=== PATIENT | female | born 1945 | race Caucasian/White ===

== ENCOUNTER 2017-03-10 10:46 | Emergency (ER) | payer MEDICARE ==
[~2017-03-10] VITALS: Ht 160 cm; Wt 77.0 kg
[~2017-03-10 10:46] MED LIST: ANTIVERT OR; BEE POLLEN500 M1 PO; CALCIUM 600/VI600 MG PO; DIOVAN HCT160 MG/25 PO; DIOVAN160 MG PO; FISH OIL1000 MG PO; MECLIZINE25 MG PO; MEDDOSEPAK OR; PREDNISONE10 MG PO; PROTONIX40 MG PO; PROVENTIL IN; SPIRIVA RE2.5 MCG/AC IN; SYMBICORT1 AE1 IN; SYNTHROID100 MCG PO; SYNTHROID112 MCG PO; TOPROL XL PO; TYLENOL 500MG TAB PO; VALIUM2 MG PO; ZITHROMAX250 MG PO; ZOFRAN ODT4 MG PO
[2017-03-10 12:09] LABS: URINE BILIRUBIN - DIPSTICK NEGATIVE (NEGATIVE); URINE BLOOD DIPSTICK NEGATIVE (NEGATIVE); URINE COLOR YELLOW; URINE GLUCOSE - DIPSTICK NEGATIVE (NEGATIVE); URINE KETONE TRACE mg/dL (NEGATIVE); URINE LEUK ESTERASE TRACE (NEGATIVE); URINE NITRITE - DIPSTICK NEGATIVE (Negative); URINE PH 5.5 (4.5-8.0); URINE PROTEIN - DIPSTICK NEGATIVE (NEG-TRACE); URINE UROBILINOGEN - DIPSTICK 0.2 E.U./dL (0.2)
[2017-03-10 12:13] LABS: HEMATOCRIT 42.6 % (37.0-47.0); HEMOGLOBIN 14.2 g/dl (12.0-16.0); IMMATURE GRANULOCYTES 0.5 % (0.0-1.0); MEAN CELL VOLUME 86.4 fL CALC (80.0-100.0); MEAN CORPUSCULAR HGB 28.8 pG CALC (26.0-32.0); MEAN CORPUSCULAR HGB CONC 33.3 g/L CALC (32.0-36.0); NEUT# 10.3 thou/uL (2.00-7.15); RED BLOOD COUNT 4.93 mill/uL (4.20-5.60); RED CELL DISTRI WIDTH 14.2 % (11.5-15.5)
[2017-03-10 12:18] LABS: URINE CLARITY CLOUDY
[2017-03-10 12:22] LABS: ALBUMIN 4.3 g/dL (3.2-5.0); ALKALINE PHOSPHATASE 109 u/l (38-126); ANION GAP 14 (6-22 (CALC)); BILIRUBIN, TOTAL 0.7 mg/dL (0.0-1.4); BUN 12 mg/dL (8-23); BUN/CREATININE RATIO 18 (12-20 (CALC)); CALCIUM 9.2 mg/dL (8.4-10.2); CARBON DIOXIDE 29 mmol/l (22-30); CHLORIDE 101 mmol/l (95-108); CREATININE 0.7 mg/dL (0.5-1.0); GFR > 60 ML/MIN (>=60 (CALC)); GFR FOR AFR.AMER. > 60 ML/MIN (>=60 (CALC)); GLUCOSE 105 mg/dL (82-115); LIPASE 72 u/l (23-300); POTASSIUM 3.7 mmol/l (3.5-5.1); SGOT/AST 17 u/l (9-36); SGPT/ALT 30 u/l (11-66); SODIUM 140 mmol/l (137-146); TOTAL PROTEIN 7.3 g/dL (6.3-8.2)
[2017-03-10] MEDS ORDERED: ZOFRAN4 M1 PO (12:38)
[2017-03-10 13:34] VITALS: BP 151/69
== END 2017-03-10 13:20 | disposition home or self-care (01) ==
LOC: ED 10:46
PROVIDERS: Family Medicine
DX: K52.9 Noninfective gastroenteritis and colitis, unspecified (principal); I10 Essential (primary) hypertension; I25.10 Atherosclerotic heart disease of native coronary artery without angina pectoris; J45.909 Unspecified asthma, uncomplicated; E03.9 Hypothyroidism, unspecified

== ENCOUNTER 2017-07-29 22:22 | Observation (INO) | payer MEDICARE ==
[~2017-07-29] VITALS: Ht 157.5 cm; Wt 80.0 kg
[~2017-07-29 22:22] MED LIST changes: +ZOFRAN4 M1 PO
[2017-07-30 00:22] LABS: HEMATOCRIT 39.6 % (37.0-47.0); HEMOGLOBIN 12.8 g/dl (12.0-16.0); IMMATURE GRANULOCYTES 0.2 % (0.0-1.0); MEAN CORPUSCULAR HGB 28.4 pG CALC (26.0-32.0); MEAN CORPUSCULAR HGB CONC 32.3 g/L CALC (32.0-36.0); NEUT# 5.41 thou/uL (2.00-7.15); RED BLOOD COUNT 4.5 mill/uL (4.20-5.60); RED CELL DISTRI WIDTH 14.7 % (11.5-15.5)
[2017-07-30 00:43] LABS: INTERNATIONAL NORMALIZED RATIO 0.9 RATIO (0.7-1.3); PROTHROMBIN TIME 9.5 SECONDS (9.0-12.5)
[2017-07-30 00:58] LABS: ALBUMIN 3.9 g/dL (3.2-5.0); ALKALINE PHOSPHATASE 143 u/l (38-126); ANION GAP 15 (6-22 (CALC)); BILIRUBIN, TOTAL 0.2 mg/dL (0.0-1.4); BUN 15 mg/dL (8-23); BUN/CREATININE RATIO 20 (12-20 (CALC)); CARBON DIOXIDE 25 mmol/l (22-30); CHLORIDE 108 mmol/l (95-108); CREATININE 0.8 mg/dL (0.5-1.0); GFR > 60 ML/MIN (>=60 (CALC)); GFR FOR AFR.AMER. > 60 ML/MIN (>=60 (CALC)); POTASSIUM 3.6 mmol/l (3.5-5.1); SGOT/AST 19 u/l (9-36); SGPT/ALT 23 u/l (11-66); SODIUM 144 mmol/l (137-146); TOTAL PROTEIN 6.7 g/dL (6.3-8.2)
[2017-07-30 01:10] LABS: MYOGLOBIN 21 ng/mL (0 - 62)
[2017-07-30 03:10] VITALS: BP 132/72
[2017-07-30 04:29] LABS: URINE BILIRUBIN - DIPSTICK NEGATIVE (NEGATIVE); URINE BLOOD DIPSTICK NEGATIVE (NEGATIVE); URINE COLOR YELLOW; URINE GLUCOSE - DIPSTICK NEGATIVE (NEGATIVE); URINE KETONE NEGATIVE (NEGATIVE); URINE NITRITE - DIPSTICK NEGATIVE (Negative); URINE PH 5.5 (4.5-8.0); URINE PROTEIN - DIPSTICK NEGATIVE (NEG-TRACE); URINE SPECIFIC GRAVITY 1.025; URINE UROBILINOGEN - DIPSTICK 0.2 E.U./dL (0.2)
[2017-07-30 04:31] LABS: URINE CLARITY CLEAR; URINE LEUK ESTERASE SMALL (NEGATIVE)
[2017-07-30 04:43] LABS: URINE SQUAMOUS EPITHELIAL CELL RARE EPI/hpf (0-FEW)
[2017-07-30 05:39] VITALS: BP 141/72
[2017-07-30 07:31] VITALS: BP 132/61
[2017-07-30 09:23] LABS: CHOLESTEROL HDL RATIO 3.5 (<4.4 (CALC))
[2017-07-30] MEDS ORDERED: ADLT ASA LOW81 MG PO (10:18)
[2017-07-30] MEDS ORDERED: LEVOTHYROXIN100 MC1 PO (10:18)
[2017-07-30] MEDS ORDERED: LIPITOR10 M1 PO (10:18)
[2017-07-30 11:00] LABS: INFLUENZA A NONE DETECTED (NONE DETECT); INFLUENZA B NONE DETECTED (NONE DETECT)
[2017-07-30] MEDS ORDERED: NITROSTAT0.4 MG SL (11:03)
[2017-07-30 11:18] VITALS: BP 172/75
[2017-07-30] MEDS ORDERED: DIOVAN HCT160 MG/25 PO (12:41)
== END 2017-07-30 13:10 | disposition home or self-care (01) ==
LOC: ED 22:22 → ED-I 07-30 00:47 → ED 07-30 02:21 → MS2 07-30 02:22
PROVIDERS: Emergency Medicine; Nurse Practitioner Family; ADMIT Internal Medicine; ATTEND Internal Medicine
DX: I20.9 Angina pectoris, unspecified (principal); I16.0 Hypertensive urgency; I10 Essential (primary) hypertension; E03.9 Hypothyroidism, unspecified; K57.30 Diverticulosis of large intestine without perforation or abscess without bleeding; J45.20 Mild intermittent asthma, uncomplicated; R42 Dizziness and giddiness; Z91.14 Patient's other noncompliance with medication regimen; R06.02 Shortness of breath

== ENCOUNTER 2018-01-30 12:32 | Emergency (ER) | payer MEDICARE ==
[~2018-01-30] VITALS: Ht 157.5 cm; Wt 80.0 kg
[~2018-01-30 12:32] MED LIST changes: +ADLT ASA LOW81 MG PO; +LEVOTHYROXIN100 MC1 PO; +LIPITOR10 M1 PO; +NITROSTAT0.4 MG SL
[2018-01-30] MEDS ORDERED: LEVOTHYROXIN75 MCG PO (12:57)
[2018-01-30 13:56] LABS: URINE BILIRUBIN - DIPSTICK NEGATIVE (NEGATIVE); URINE BLOOD DIPSTICK NEGATIVE (NEGATIVE); URINE COLOR YELLOW; URINE GLUCOSE - DIPSTICK NEGATIVE (NEGATIVE); URINE KETONE NEGATIVE (NEGATIVE); URINE LEUK ESTERASE TRACE (NEGATIVE); URINE NITRITE - DIPSTICK NEGATIVE (Negative); URINE PROTEIN - DIPSTICK NEGATIVE (NEG-TRACE); URINE SPECIFIC GRAVITY <=1.005; URINE UROBILINOGEN - DIPSTICK 0.2 E.U./dL (0.2)
[2018-01-30 13:58] LABS: URINE CLARITY CLEAR
[2018-01-30 15:02] LABS: HEMOGLOBIN 13.1 g/dl (12.0-16.0); IMMATURE GRANULOCYTES 0.3 % (0.0-5.0); MEAN CELL VOLUME 87.4 fL CALC (80.0-100.0); MEAN CORPUSCULAR HGB 27.9 pG CALC (26.0-32.0); NEUT# 5.75 thou/uL (2.00-7.15); RED BLOOD COUNT 4.69 mill/uL (4.20-5.60); RED CELL DISTRI WIDTH 14.9 % (11.5-15.5)
[2018-01-30 15:22] LABS: ALKALINE PHOSPHATASE 87 u/l (38-126); ANION GAP 14 (6-22 (CALC)); BILIRUBIN, TOTAL 0.4 mg/dL (0.0-1.4); BUN 10 mg/dL (8-23); BUN/CREATININE RATIO 13 (12-20 (CALC)); CARBON DIOXIDE 26 mmol/l (22-30); CHLORIDE 107 mmol/l (95-108); CREATININE 0.7 mg/dL (0.5-1.0); GFR > 60 ML/MIN (>=60 (CALC)); GFR FOR AFR.AMER. > 60 ML/MIN (>=60 (CALC)); POTASSIUM 3.5 mmol/l (3.5-5.1); SGOT/AST 22 u/l (9-36); SGPT/ALT 30 u/l (11-66); SODIUM 144 mmol/l (137-146); TOTAL PROTEIN 7.2 g/dL (6.3-8.2)
[2018-01-30 15:52] LABS: TSH, 3RD GENERATION 0.54 uIU/mL (0.47 - 4.68)
[2018-01-30] MEDS ORDERED: FLEXERIL PO (16:28)
[2018-01-30] MEDS ORDERED: PERCOGESI1 PO (16:28)
[2018-01-30 16:56] VITALS: BP 155/64
== END 2018-01-30 17:33 | disposition home or self-care (01) ==
LOC: ED 12:32
PROVIDERS: Emergency Medicine
PROC: 05HY33Z Insertion of Infusion Device into Upper Vein, Percutaneous Approach (ICD-10-PCS; principal; 2018-01-30)
DX: M79.605 Pain in left leg (principal); I10 Essential (primary) hypertension; I25.10 Atherosclerotic heart disease of native coronary artery without angina pectoris; J45.909 Unspecified asthma, uncomplicated; M19.90 Unspecified osteoarthritis, unspecified site; R07.9 Chest pain, unspecified; R00.2 Palpitations

== ENCOUNTER 2018-02-12 17:17 | Observation (INO) | payer MEDICARE ==
[~2018-02-12] VITALS: Ht 157.5 cm; Wt 77.3 kg
[~2018-02-12 17:17] MED LIST changes: +FLEXERIL PO; +LEVOTHYROXIN75 MCG PO; +PERCOGESI1 PO
[2018-02-12] MEDS ORDERED: HYDROCHLOROT25 MG PO (17:45)
[2018-02-12 18:10] LABS: HEMATOCRIT 42.6 % (37.0-47.0); HEMOGLOBIN 14.1 g/dl (12.0-16.0); IMMATURE GRANULOCYTES 0.1 % (0.0-5.0); MEAN CELL VOLUME 85.9 fL CALC (80.0-100.0); MEAN CORPUSCULAR HGB 28.4 pG CALC (26.0-32.0); MEAN CORPUSCULAR HGB CONC 33.1 g/L CALC (32.0-36.0); NEUT# 5.65 thou/uL (2.00-7.15); RED BLOOD COUNT 4.96 mill/uL (4.20-5.60); RED CELL DISTRI WIDTH 14.5 % (11.5-15.5)
[2018-02-12 18:24] LABS: ALBUMIN 4.2 g/dL (3.2-5.0); ALKALINE PHOSPHATASE 99 u/l (38-126); ANION GAP 16 (6-22 (CALC)); BILIRUBIN, TOTAL 0.4 mg/dL (0.0-1.4); BUN 16 mg/dL (8-23); BUN/CREATININE RATIO 22 (12-20 (CALC)); CARBON DIOXIDE 22 mmol/l (22-30); CHLORIDE 106 mmol/l (95-108); CREATININE 0.7 mg/dL (0.5-1.0); GFR > 60 ML/MIN (>=60 (CALC)); GFR FOR AFR.AMER. > 60 ML/MIN (>=60 (CALC)); LIPASE 100 u/l (23-300); POTASSIUM 3.8 mmol/l (3.5-5.1); SGOT/AST 19 u/l (9-36); SGPT/ALT 28 u/l (11-66); SODIUM 140 mmol/l (137-146); TOTAL PROTEIN 7.2 g/dL (6.3-8.2)
[2018-02-12 19:54] LABS: URINE BILIRUBIN - DIPSTICK NEGATIVE (NEGATIVE); URINE BLOOD DIPSTICK NEGATIVE (NEGATIVE); URINE COLOR YELLOW; URINE GLUCOSE - DIPSTICK NEGATIVE (NEGATIVE); URINE KETONE NEGATIVE (NEGATIVE); URINE LEUK ESTERASE TRACE (NEGATIVE); URINE NITRITE - DIPSTICK NEGATIVE (Negative); URINE PROTEIN - DIPSTICK NEGATIVE (NEG-TRACE); URINE SPECIFIC GRAVITY >=1.030; URINE UROBILINOGEN - DIPSTICK 0.2 E.U./dL (0.2)
[2018-02-12 19:57] LABS: URINE CLARITY CLEAR
[2018-02-12 20:50] VITALS: BP 170/75
[2018-02-13 00:05] VITALS: BP 147/71
[2018-02-13 04:47] VITALS: BP 131/66
[2018-02-13 08:18] VITALS: BP 189/78
[2018-02-13 11:00] VITALS: BP 156/81
== END 2018-02-13 16:25 | disposition home or self-care (01) ==
LOC: ED 17:17 → ED-I 20:10 → ED 20:35 → MS2 20:36
PROVIDERS: Family Medicine; ADMIT Internal Medicine; ATTEND Internal Medicine
DX: R07.2 Precordial pain (principal); I16.0 Hypertensive urgency; I10 Essential (primary) hypertension; E03.9 Hypothyroidism, unspecified; I25.10 Atherosclerotic heart disease of native coronary artery without angina pectoris; J45.909 Unspecified asthma, uncomplicated; M19.90 Unspecified osteoarthritis, unspecified site; E78.5 Hyperlipidemia, unspecified; F41.9 Anxiety disorder, unspecified; I20.9 Angina pectoris, unspecified; K44.9 Diaphragmatic hernia without obstruction or gangrene; K57.30 Diverticulosis of large intestine without perforation or abscess without bleeding; R06.02 Shortness of breath
CPT/HCPCS: G0378

== ENCOUNTER 2018-03-26 21:40 | Observation (INO) | payer MEDICARE ==
[~2018-03-26] VITALS: Ht 157.5 cm; Wt 78.2 kg
[~2018-03-26 21:40] MED LIST changes: +HYDROCHLOROT25 MG PO
[2018-03-26 22:59] LABS: HEMATOCRIT 38.8 % (37.0-47.0); HEMOGLOBIN 12.7 g/dl (12.0-16.0); IMMATURE GRANULOCYTES 0.2 % (0.0-5.0); MEAN CELL VOLUME 86.6 fL CALC (80.0-100.0); MEAN CORPUSCULAR HGB 28.3 pG CALC (26.0-32.0); MEAN CORPUSCULAR HGB CONC 32.7 g/L CALC (32.0-36.0); NEUT# 4.81 thou/uL (2.00-7.15); RED BLOOD COUNT 4.48 mill/uL (4.20-5.60); RED CELL DISTRI WIDTH 14.6 % (11.5-15.5)
[2018-03-26 23:12] LABS: ALBUMIN 3.7 g/dL (3.2-5.0); ALKALINE PHOSPHATASE 107 u/l (38-126); ANION GAP 10 (6-22 (CALC)); BILIRUBIN, TOTAL 0.3 mg/dL (0.0-1.4); BUN 12 mg/dL (8-23); BUN/CREATININE RATIO 18 (12-20 (CALC)); CARBON DIOXIDE 26 mmol/l (22-30); CHLORIDE 111 mmol/l (95-108); CREATININE 0.7 mg/dL (0.5-1.0); GFR > 60 ML/MIN (>=60 (CALC)); GFR FOR AFR.AMER. > 60 ML/MIN (>=60 (CALC)); POTASSIUM 3.5 mmol/l (3.5-5.1); SGOT/AST 16 u/l (9-36); SODIUM 144 mmol/l (137-146); TOTAL PROTEIN 6.7 g/dL (6.3-8.2)
[2018-03-26 23:25] LABS: MYOGLOBIN 23 ng/mL (0 - 62)
[2018-03-27 00:13] LABS: URINE BILIRUBIN - DIPSTICK NEGATIVE (NEGATIVE); URINE BLOOD DIPSTICK NEGATIVE (NEGATIVE); URINE COLOR YELLOW; URINE GLUCOSE - DIPSTICK NEGATIVE (NEGATIVE); URINE KETONE NEGATIVE (NEGATIVE); URINE LEUK ESTERASE TRACE (NEGATIVE); URINE NITRITE - DIPSTICK NEGATIVE (Negative); URINE PH 5.5 (4.5-8.0); URINE PROTEIN - DIPSTICK NEGATIVE (NEG-TRACE); URINE UROBILINOGEN - DIPSTICK 0.2 E.U./dL (0.2)
[2018-03-27 00:14] LABS: URINE CLARITY CLEAR
[2018-03-27 01:50] VITALS: BP 171/97
[2018-03-27 04:33] VITALS: BP 144/63
[2018-03-27 07:51] VITALS: BP 146/75
[2018-03-27 08:16] VITALS: BP 120/71
[2018-03-27 11:57] VITALS: BP 146/78
== END 2018-03-27 14:06 | disposition home or self-care (01) ==
LOC: ED 21:40 → ED-I 03-27 → ED 03-27 00:36 → MS2 03-27 00:37
PROVIDERS: Emergency Medicine; ADMIT Internal Medicine Nephrology; ATTEND Internal Medicine Nephrology
DX: R07.89 Other chest pain (principal); R00.2 Palpitations; I10 Essential (primary) hypertension; J44.9 Chronic obstructive pulmonary disease, unspecified; E78.5 Hyperlipidemia, unspecified; E03.9 Hypothyroidism, unspecified; E66.9 Obesity, unspecified; Z68.31 Body mass index [BMI] 31.0-31.9, adult; Z82.49 Family history of ischemic heart disease and other diseases of the circulatory system; R09.89 Other specified symptoms and signs involving the circulatory and respiratory systems

== ENCOUNTER → 2018-07-12 | Outpatient (REF) | payer MEDICARE ==
[2018-07-12 09:38] LABS: HEMATOCRIT 40.6 % (37.0-47.0); MEAN CELL VOLUME 89.4 fL CALC (80.0-100.0); MEAN CORPUSCULAR HGB 28.6 pG CALC (26.0-32.0); RED BLOOD COUNT 4.54 mill/uL (4.20-5.60)
[2018-07-12 09:45] LABS: URINE BILIRUBIN - DIPSTICK NEGATIVE (NEGATIVE); URINE BLOOD DIPSTICK NEGATIVE (NEGATIVE); URINE COLOR YELLOW; URINE GLUCOSE - DIPSTICK NEGATIVE (NEGATIVE); URINE KETONE NEGATIVE (NEGATIVE); URINE LEUK ESTERASE NEGATIVE (NEGATIVE); URINE NITRITE - DIPSTICK NEGATIVE (Negative); URINE PH 5.5 (4.5-8.0); URINE PROTEIN - DIPSTICK NEGATIVE (NEG-TRACE); URINE SPECIFIC GRAVITY >=1.030; URINE UROBILINOGEN - DIPSTICK 0.2 E.U./dL (0.2)
[2018-07-12 10:18] LABS: ALBUMIN 3.9 g/dL (3.2-5.0); ALKALINE PHOSPHATASE 78 u/l (38-126); ANION GAP 15 (6-22 (CALC)); BILIRUBIN, TOTAL 0.7 mg/dL (0.0-1.4); BUN 18 mg/dL (8-23); BUN/CREATININE RATIO 24 (12-20 (CALC)); CALCULATED LDLCHOLESTEROL 103 mg/dL (62-129 (CALC)); CARBON DIOXIDE 25 mmol/l (22-30); CHLORIDE 105 mmol/l (95-108); CHOLESTEROL HDL RATIO 3.4 (<4.4 (CALC)); CREATININE 0.8 mg/dL (0.5-1.0); GFR > 60 ML/MIN (>=60 (CALC)); GFR FOR AFR.AMER. > 60 ML/MIN (>=60 (CALC)); HDL CHOLESTEROL 61 mg/dL (>=40); SGOT/AST 22 u/l (9-36); SODIUM 141 mmol/l (137-146); TOTAL CHOLESTEROL 207 mg/dl (0-199); TOTAL PROTEIN 6.8 g/dL (6.3-8.2); TOTAL TRIGLYCERIDES 213 mg/dl (30-149); VLDL CHOLESTROL 43 mg/dl (0-48 (CALC))
[2018-07-12 10:22] LABS: POTASSIUM 4.3 mmol/l (3.5-5.1)
[2018-07-12 10:46] LABS: TSH, 3RD GENERATION 3.49 uIU/mL (0.47 - 4.68)
== END | disposition home or self-care (01) ==
LOC: LAB 09:04
PROVIDERS: ATTEND Nurse Practitioner Adult Health
DX: E03.9 Hypothyroidism, unspecified (principal); I10 Essential (primary) hypertension

== ENCOUNTER 2018-09-13 11:58 | Emergency (ER) | payer MEDICARE ==
[~2018-09-13] VITALS: Ht 157.5 cm; Wt 77.3 kg
[2018-09-13 13:03] LABS: URINE BILIRUBIN - DIPSTICK NEGATIVE (NEGATIVE); URINE BLOOD DIPSTICK NEGATIVE (NEGATIVE); URINE COLOR YELLOW; URINE GLUCOSE - DIPSTICK NEGATIVE (NEGATIVE); URINE KETONE NEGATIVE (NEGATIVE); URINE LEUK ESTERASE NEGATIVE (NEGATIVE); URINE NITRITE - DIPSTICK NEGATIVE (Negative); URINE PH 5.5 (4.5-8.0); URINE PROTEIN - DIPSTICK NEGATIVE (NEG-TRACE); URINE SPECIFIC GRAVITY <=1.005; URINE UROBILINOGEN - DIPSTICK 0.2 E.U./dL (0.2)
[2018-09-13 13:07] LABS: ALBUMIN 4.5 g/dL (3.2-5.0); ALKALINE PHOSPHATASE 99 u/l (38-126); ANION GAP 17 (6-22 (CALC)); BILIRUBIN, TOTAL 0.4 mg/dL (0.0-1.4); BUN 16 mg/dL (8-23); BUN/CREATININE RATIO 24 (12-20 (CALC)); CARBON DIOXIDE 24 mmol/l (22-30); CHLORIDE 104 mmol/l (95-108); CREATININE 0.7 mg/dL (0.5-1.0); GFR > 60 ML/MIN (>=60 (CALC)); GFR FOR AFR.AMER. > 60 ML/MIN (>=60 (CALC)); POTASSIUM 4.2 mmol/l (3.5-5.1); SGOT/AST 17 u/l (9-36); SODIUM 141 mmol/l (137-146); TOTAL PROTEIN 7.7 g/dL (6.3-8.2)
[2018-09-13 13:45] LABS: HEMATOCRIT 43.2 % (37.0-47.0); HEMOGLOBIN 13.9 g/dl (12.0-16.0); IMMATURE GRANULOCYTES 0.6 % (0.0-5.0); MEAN CELL VOLUME 88.5 fL CALC (80.0-100.0); MEAN CORPUSCULAR HGB 28.5 pG CALC (26.0-32.0); MEAN CORPUSCULAR HGB CONC 32.2 g/L CALC (32.0-36.0); NEUT# 8.61 thou/uL (2.00-7.15); RED BLOOD COUNT 4.88 mill/uL (4.20-5.60); RED CELL DISTRI WIDTH 13.9 % (11.5-15.5)
[2018-09-13] MEDS ORDERED: AMOXICILLIN500 MG PO (13:55)
[2018-09-13] MEDS ORDERED: PREDNISONE5 MG PO (13:56)
[2018-09-13 14:32] VITALS: BP 186/89
== END 2018-09-13 14:33 | disposition home or self-care (01) ==
LOC: ED 11:58
DX: J40 Bronchitis, not specified as acute or chronic (principal); J32.9 Chronic sinusitis, unspecified

== ENCOUNTER 2018-09-15 19:01 | Emergency (ER) | payer MEDICARE ==
[~2018-09-15] VITALS: Ht 157.5 cm; Wt 72.0 kg
[~2018-09-15 19:01] MED LIST changes: +AMOXICILLIN500 MG PO; +PREDNISONE5 MG PO
[2018-09-15] MEDS ORDERED: AZITHROMYCIN1 GM PO (19:15)
[2018-09-15 19:50] VITALS: BP 179/79
== END 2018-09-15 19:50 | disposition home or self-care (01) ==
LOC: ED 19:01
DX: B34.9 Viral infection, unspecified (principal); R09.81 Nasal congestion; I10 Essential (primary) hypertension; I25.10 Atherosclerotic heart disease of native coronary artery without angina pectoris

== ENCOUNTER 2019-05-01 17:33 | Inpatient (IN) | payer MEDICARE ==
[~2019-05-01] VITALS: Ht 157.5 cm; Wt 78.0 kg
[~2019-05-01 17:33] MED LIST changes: +AZITHROMYCIN1 GM PO
--- NOTE | 2019-05-01 17:42 | NUR ---
PT TO ROOM VIA WC FOR BEDSIDE TRIAGE PT STATES THAT SHE HAS BEEN TREATED FOR 3 WEEKS FOR BRONCHITIS, CHEST TIGHTNESS FOR PAST COUPLE OF DAYS. WORSENING SOB TODAY. STATES GENERALIZED WEAKNESS FOR PAST FEW DAYS. VOMITING ON AND OFF LAST WEEK. DENIES ANY NAUSEA AT THIS TIME. PT IS AOX4.
[2019-05-01] MEDS ORDERED: DIOVAN160 MG PO (18:22)
[2019-05-01 18:32] LABS: HEMATOCRIT 44.5 % (37.0-47.0); IMMATURE GRANULOCYTES 0.4 % (0.0-5.0); MEAN CELL VOLUME 87.3 fL CALC (80.0-100.0); MEAN CORPUSCULAR HGB 28.2 pG CALC (26.0-32.0); MEAN CORPUSCULAR HGB CONC 32.4 g/L CALC (32.0-36.0); NEUT# 6.23 thou/uL (2.00-7.15); RED BLOOD COUNT 5.1 mill/uL (4.20-5.60); RED CELL DISTRI WIDTH 14.9 % (11.5-15.5)
[2019-05-01 18:33] LABS: HEMOGLOBIN 14.4 g/dl (12.0-16.0)
--- NOTE | 2019-05-01 18:42 | NUR ---
PT STATES HER CHEST DISCOMFORT HAS GREATLY DECREASED TO 2/10
[2019-05-01 18:50] LABS: ALBUMIN 4.4 g/dL (3.2-5.0); ALKALINE PHOSPHATASE 107 u/l (38-126); ANION GAP 15 (6-22 (CALC)); BILIRUBIN, TOTAL 0.5 mg/dL (0.0-1.4); BUN 12 mg/dL (8-23); BUN/CREATININE RATIO 16 (12-20 (CALC)); CARBON DIOXIDE 22 mmol/l (22-30); CHLORIDE 106 mmol/l (95-108); CREATININE 0.8 mg/dL (0.5-1.0); GFR > 60 ML/MIN (>=60 (CALC)); GFR FOR AFR.AMER. > 60 ML/MIN (>=60 (CALC)); POTASSIUM 3.4 mmol/l (3.5-5.1); SGOT/AST 25 u/l (9-36); SODIUM 140 mmol/l (137-146)
[2019-05-01 18:52] LABS: TOTAL PROTEIN 8.3 g/dL (6.3-8.2)
[2019-05-01 18:59] LABS: INTERNATIONAL NORMALIZED RATIO 0.9 RATIO (0.7-1.3); PROTHROMBIN TIME 9.7 SECONDS (9.0-12.5)
[2019-05-01 19:03] LABS: MYOGLOBIN 35 ng/mL (0 - 62)
--- NOTE | 2019-05-01 19:42 | NUR ---
PT STATES BREATHING HAS BEEN RELIEVED WITH NEB TX
--- NOTE | 2019-05-01 20:18 | NUR ---
B/P DROPPED TO 82/41. NITRO PASTE REMOVED. PT PLACED IN TRENDELBERG. INITAL IV HAD INFILITRATED, 2ND IV ESTABLISHED AND FLUID BOLUS GIVEN.
--- NOTE | 2019-05-01 20:35 | NUR ---
B/P WITHIN NORMAL RANGE, PT STATES FEELING BETTER, REMOVED FROM TRENDELENBERG, IV PATENT WITH FLUIDS RUNNING.
--- NOTE | 2019-05-01 20:35 | NUR ---
PT RESTING ON STRETCHER, STATES FEELING LETHRAGIC AT THIS TIME
--- NOTE | 2019-05-01 21:51 | NUR ---
REPROT CALLED TO [facility]- MICHAEL JUDD ACCEPTED PT
[2019-05-01 22:00] VITALS: BP 152/83
--- NOTE | 2019-05-01 22:00 | NUR ---
Pt arrived to the med surg floor via stretcher accompanied by ed nurse. Pt appears in stable condition at this time and self ambulated to standing scale and to the bed. Pt assessment completed and pt oriented to room, call system, lights, bed and tv. Blankets provide/request. Pt LOCx4. Admission completed at this time. IV antibiotic therapy was running as pt arrived from ed and is still running to #[id number]/site appears healthy. Family brought to join pt from waiting room. Pt did dicuss recent family loss/stress and anxiety from that during assessment, pt was teary while discussing, but is now restful in bed w/family at bedside. Call light w/in reach and pt oriented to its use.
--- NOTE | 2019-05-01 22:08 | NUR ---
Admission Note Report Given to: MICHAEL JUDD Transported by: Wheelchair X Stretcher Transported with: X Nurse Transporter X Patent IV O2 X Bioinformatics Scientist TRANSPORTED TO 290 WITHOUT INCIDENT
[2019-05-01 22:47] LABS: URINE BILIRUBIN - DIPSTICK NEGATIVE (NEGATIVE); URINE COLOR YELLOW; URINE GLUCOSE - DIPSTICK NEGATIVE (NEGATIVE); URINE KETONE NEGATIVE (NEGATIVE); URINE LEUK ESTERASE TRACE (NEGATIVE); URINE NITRITE - DIPSTICK NEGATIVE (Negative); URINE PH 5.5 (4.5-8.0); URINE PROTEIN - DIPSTICK NEGATIVE (NEG-TRACE); URINE UROBILINOGEN - DIPSTICK 0.2 E.U./dL (0.2)
[2019-05-01 22:48] LABS: URINE BLOOD DIPSTICK NEGATIVE (NEGATIVE)
--- NOTE | 2019-05-01 22:48 | NUR ---
ANTIBIOTIC THERAPY COMPLETED AT THIS TIME AND IVF RUNNING. PT ASSISTED W/PO FLUIDS AND BLANKET FOR COMFORT. FAMILY X2 AT BS.
[2019-05-02] VITALS (7 sets, daily range): BP systolic 108–199; BP diastolic 58–76
--- NOTE | 2019-05-02 00:17 | NUR ---
PT AWOKE TO MY ENTERING ROOM, DENIES ANY NEEDS. LIGHTS OUT, PT RETURNING TO SLEEP.
--- NOTE | 2019-05-02 00:38 | NUR ---
Pt assisted to bsc by jumana c/pina feeling dizzy and nauseous. Pt back to bed asking for food, stating she hasn't eaten supper or anything this evening. Chicken broth and crackers provided. Ed physician notified of nausea/orders provided.
--- NOTE | 2019-05-02 04:42 | NUR ---
IDA IN W/PT OBTAINING V/S. PT DENIES ANY NEEDS AT THIS TIME, BUT REPORTS TO FILTER BED PLACER THAT SHE STILLS FEELS DIZZY, BUT THE NAUSEA HAS IMPROVED W/THE MEDICATTION.
[2019-05-02 06:15] LABS: IMMATURE GRANULOCYTES 0.3 % (0.0-5.0); MEAN CELL VOLUME 89.6 fL CALC (80.0-100.0); MEAN CORPUSCULAR HGB 27.8 pG CALC (26.0-32.0); NEUT# 4.89 thou/uL (2.00-7.15); RED BLOOD COUNT 4.03 mill/uL (4.20-5.60)
[2019-05-02 06:20] LABS: HEMATOCRIT 36.1 % (37.0-47.0); HEMOGLOBIN 11.2 g/dl (12.0-16.0)
[2019-05-02 06:26] LABS: ANION GAP 10 (6-22 (CALC)); BUN 11 mg/dL (8-23); BUN/CREATININE RATIO 18 (12-20 (CALC)); CARBON DIOXIDE 22 mmol/l (22-30); CHLORIDE 113 mmol/l (95-108); CREATININE 0.6 mg/dL (0.5-1.0); GFR > 60 ML/MIN (>=60 (CALC)); GFR FOR AFR.AMER. > 60 ML/MIN (>=60 (CALC)); POTASSIUM 3.9 mmol/l (3.5-5.1); SODIUM 141 mmol/l (137-146)
--- NOTE | 2019-05-02 08:00 | NUR ---
ASSESSMENT IS COMPLETED: IV SITE IS FREE FROM REDNESS OR EDEMA. HR IS REG, PULSES ARE STRONG X4, ABD IS SOFT WITH ACTIVE BS. BREATH SOUNDS ARE CLEAR, TELE MONITOR IN PLACE. CONITNUE TO OSBERVE AND MONITOR.
--- NOTE | 2019-05-02 08:05 | NUR ---
PT C/O "FEELING DIZZY" NO DIET WAS IN PLACE AT THIS VINNY.
--- NOTE | 2019-05-02 09:10 | NUR ---
earnest west in to visit with pt.
[2019-05-02 10:01] LABS: MAGNESIUM 1.8 mg/dL (1.6-2.3)
--- NOTE | 2019-05-02 12:30 | NUR ---
PT IS RELAXING IN BED FAMILY IN THE ROOM. NO DISTRESS NOTED. IV SITE IS FREE FROM REDNESS OR EDEMA. CONTINUE TO OSBERVE AND MONITOR.
--- NOTE | 2019-05-02 16:30 | NUR ---
PT HAS WALKED WITH PHYSICAL THERAPY. IV SITE IS FREE FROM REDNESS OR EDEMA CONTINUE TO OSBERVE AND MONITOR.,
--- NOTE | 2019-05-02 18:30 | NUR ---
PT C/O HEART RACING AFTER THE BREATHING TX, ANDREW ARPN WAS NOTIFIED BY RIC MERA. NEB TX CHANGED TO PRN.
--- NOTE | 2019-05-02 19:30 | NUR ---
PT. RESTING IN BED WITH DAUGHTER AT BEDSIDE AND B/P ELEAVTED AT 199/76 WITH HR OF 90, MEDICATED WITH ORDERED PRN CLONIDINE; WILL REASSESS. TELEMETRY IN PLACE. IV SITE PATENT AND ORDERED IVF GIVEN. PT. ASSISTED TO THE BSC AND BACK INTO BED. UPDATED ON POC, CALL LIGHT IS IN REACH. PO FLUIDS OFFERED. CALL LIGHT IS IN REACH. WILL CONTINUE TO MONITOR.
--- NOTE | 2019-05-02 20:53 | NUR ---
PT. C/O CHEST PRESSURE ;RT IN AT BEDSIDE DOING AN EKG. NOTIFIED MICHELLE SCHAFER OF THIS WELL WELL MEDICATING HER EARLIER FOR HTN WITH CLONIDINE.ALSO THAT SHE APPEARS TO BE ANXIOUS. NEW ORDERS RECEIVED AND TO BE CARRIED OUT.
--- NOTE | 2019-05-02 22:00 | NUR ---
NOTIFIED MICHELLE NELSON OF EKG UPLOADED SO PROVIDER CAN VIEW WELL PER RT. IT APPEARED TO HAVE SLIGHT MORE T-WAVE DEPRESSION COMPARED TO PREVIOUS. BOTH ARE AVAILABLE FOR PROVIDER TO SEE. ALSO NOTIFIED HER OF NEGATIVE TROPONIN AT THIS TIME AND OF B/P NOW DOWN TO 142/58 AND PT. IS NOW SLEEPING. NO NEW ORDERS RECEIVED.
[2019-05-03] VITALS (7 sets, daily range): BP systolic 110–168; BP diastolic 58–83
--- NOTE | 2019-05-03 02:30 | NUR ---
PT. RESTING IN BED WITH NO DISTRESS NOTED; DENIES NEEDS/PAIN. SNACK PROVIDED. COMMODE EMPTIED. CALL LIGHT IS IN REACH.
--- NOTE | 2019-05-03 03:33 | NUR ---
VS OBTAINED. PT. STILL REPORTING NO BM; MOM GIVEN. PT. THEN ASSISTED ONTO BSC. ENCOURAGED TO CALL FOR ANY NEEDS. CALL LIGHT IS IN REACH.
[2019-05-03 05:42] LABS: HEMATOCRIT 35.5 % (37.0-47.0); HEMOGLOBIN 11.1 g/dl (12.0-16.0); MEAN CELL VOLUME 89.6 fL CALC (80.0-100.0); MEAN CORPUSCULAR HGB CONC 31.3 g/L CALC (32.0-36.0); RED BLOOD COUNT 3.96 mill/uL (4.20-5.60); RED CELL DISTRI WIDTH 15.3 % (11.5-15.5)
[2019-05-03 06:07] LABS: ANION GAP 15 (6-22 (CALC)); BUN 8 mg/dL (8-23); BUN/CREATININE RATIO 14 (12-20 (CALC)); CARBON DIOXIDE 18 mmol/l (22-30); CHLORIDE 111 mmol/l (95-108); CREATININE 0.6 mg/dL (0.5-1.0); GFR > 60 ML/MIN (>=60 (CALC)); GFR FOR AFR.AMER. > 60 ML/MIN (>=60 (CALC)); POTASSIUM 4.1 mmol/l (3.5-5.1); SODIUM 140 mmol/l (137-146)
--- NOTE | 2019-05-03 07:45 | NUR ---
PT RESTING IN BED. A&O X3. NO DISTRESS NOTED AT THIS TIME. WHEEZES HEARD ON EXPIRATION. PT REPORTS FEELING DIZZINESS. EXPLAINED TO THE PT THAT IF SHE HAD TO GET OUT OF BED TO CALL US TO PREVENT A FALL. DISCUSSED POC. ASSESSMENT COMPLETED AT THIS TIME. CALL LIGHT IN REACH. CONTINUE TO MONITOR.
--- NOTE | 2019-05-03 11:06 | NUR ---
PTS BP 160/75. CLONIDINE GIVEN. WILL RE EVALUATE PTS BP.
--- NOTE | 2019-05-03 11:46 | NUR ---
OFFERED PT BREATHING TX TO HELP WITH HE WHEEZING. PT DECLINED. INSTRUCTED PT TO USE IS DEVICE. TAUGHT PT HOW TO PROPERLY USE DEVICE. PT SUCCESSFULLY USED DEVICE X10. EXPLAINED THAT SHE HAD TO BE USING DEVICE EVERY HOUR WHILE AWAKE X10. PT VERBALIZED UNDERSTANDING. WILL REEVALUATE THE PTS BREATH SOUNDS AFTER SECOND USE OF IS DEVICE.
--- NOTE | 2019-05-03 12:40 | NUR ---
PTS BP 168/83. MORGAN JUDD ADMINISTERING IV APRESOLINE
--- NOTE | 2019-05-03 12:58 | NUR ---
PT REPORTS RT SIDED SHARP CHEST PAIN. VITALS TAKEN. BP 168/72, HR: 117 AND O2 100% RA.
--- NOTE | 2019-05-03 13:04 | NUR ---
RESPIRATORY AT BEDSIDE DOING AN EKG WITH SLIP COVER SEWER ON BEDSIDE. AWAITING ORDERS.
--- NOTE | 2019-05-03 13:32 | NUR ---
IV TORADOL AND PO XANAX GIVEN TO PT. PT TOLERATED WELL.
[2019-05-03] MEDS ORDERED: LEVAQUIN750 MG PO (16:55)
[2019-05-03] MEDS ORDERED: MEDDOSEPAK PO (16:55)
[2019-05-03] MEDS ORDERED: IPRATROPIU0.5 MG/3 M IN (16:57)
--- NOTE | 2019-05-03 17:52 | NUR ---
DC INSTRUCTIONS GIVEN TO PT AND FAMILY MEMBERS. PT VERBALIZED UNDERSTANDING. PT STATES THAT SHE WANTS TO FINISH HER DINNER BEFORE SHE GOES HOME. EXPLAINED TO PT TO CALL ME WHEN SHE IS READY TO ASSIST HER WITH CHANGING AND BRING A WC TO TAKE HER DOWN.
--- NOTE | 2019-05-03 18:52 | NUR ---
Discharge instructions given. Patient verbalizes understanding of same. Discharged in stable condition via Wheelchair to Home with family. All belongings sent with pt.
== END 2019-05-03 18:50 | disposition home health service (06) | DRG 194 ==
LOC: ED 17:33 → ED-I 20:46 → ED 21:02 → MS2 21:03
PROVIDERS: Emergency Medicine; Nurse Practitioner Family; ADMIT Internal Medicine; ATTEND Internal Medicine
DX: J18.9 Pneumonia, unspecified organism (principal); J44.0 Chronic obstructive pulmonary disease with (acute) lower respiratory infection; I16.0 Hypertensive urgency; I10 Essential (primary) hypertension; R07.89 Other chest pain; E03.9 Hypothyroidism, unspecified; I20.9 Angina pectoris, unspecified; E78.5 Hyperlipidemia, unspecified; F41.0 Panic disorder [episodic paroxysmal anxiety]
CPT/HCPCS: G0378; J1650

== ENCOUNTER 2019-12-25 15:04 | Observation (INO) | payer MEDICARE ==
[~2019-12-25] VITALS: Ht 157.5 cm; Wt 76.4 kg
[~2019-12-25 15:04] MED LIST changes: +IPRATROPIU0.5 MG/3 M IN; +LEVAQUIN750 MG PO; +MEDDOSEPAK PO
[2019-12-25 15:57] LABS: URINE BILIRUBIN - DIPSTICK NEGATIVE (NEGATIVE); URINE BLOOD DIPSTICK NEGATIVE (NEGATIVE); URINE COLOR YELLOW; URINE GLUCOSE - DIPSTICK NEGATIVE (NEGATIVE); URINE KETONE NEGATIVE (NEGATIVE); URINE LEUK ESTERASE NEGATIVE (NEGATIVE); URINE NITRITE - DIPSTICK NEGATIVE (Negative); URINE PROTEIN - DIPSTICK NEGATIVE (NEG-TRACE); URINE UROBILINOGEN - DIPSTICK 0.2 E.U./dL (0.2)
[2019-12-25 16:01] LABS: HEMATOCRIT 44.1 % (37.0-47.0); HEMOGLOBIN 13.9 g/dl (12.0-16.0); IMMATURE GRANULOCYTES 0.2 % (0.0-5.0); MEAN CELL VOLUME 88.6 fL CALC (80.0-100.0); MEAN CORPUSCULAR HGB 27.9 pG CALC (26.0-32.0); MEAN CORPUSCULAR HGB CONC 31.5 g/dL CAL (32.0-36.0); NEUT# 5.97 thou/uL (2.00-7.15); RED BLOOD COUNT 4.98 mill/uL (4.20-5.60); RED CELL DISTRI WIDTH 14.3 % (11.5-15.5)
[2019-12-25 16:14] LABS: ALBUMIN 4.5 g/dL (3.2-5.0); ALKALINE PHOSPHATASE 115 u/l (38-126); BILIRUBIN, TOTAL 0.3 mg/dL (0.0-1.4); BUN 12 mg/dL (8-23); BUN/CREATININE RATIO 15 (12-20 (CALC)); CARBON DIOXIDE 25 mmol/l (22-30); CHLORIDE 106 mmol/l (95-108); CREATININE 0.8 mg/dL (0.5-1.0); GFR > 60 ML/MIN (>=60 (CALC)); GFR FOR AFR.AMER. > 60 ML/MIN (>=60 (CALC)); SGOT/AST 29 u/l (9-36); SODIUM 139 mmol/l (137-146)
[2019-12-25 16:25] LABS: ANION GAP 11 (6-22 (CALC)); TOTAL PROTEIN 8.1 g/dL (6.3-8.2)
[2019-12-25 16:40] LABS: ACT PARTIAL THROMBO TIME 25.2 SECONDS (20.0-32.5); PROTHROMBIN TIME 9.7 SECONDS (9.0-12.5)
[2019-12-25 22:41] VITALS: BP 111/65
[2019-12-26] VITALS (7 sets, daily range): BP systolic 99–134; BP diastolic 51–73
[2019-12-26 14:59] LABS: ANION GAP 9 (6-22 (CALC)); BUN 12 mg/dL (8-23); BUN/CREATININE RATIO 17 (12-20 (CALC)); CARBON DIOXIDE 25 mmol/l (22-30); CHLORIDE 107 mmol/l (95-108); CREATININE 0.7 mg/dL (0.5-1.0); GFR > 60 ML/MIN (>=60 (CALC)); GFR FOR AFR.AMER. > 60 ML/MIN (>=60 (CALC)); MAGNESIUM 1.9 mg/dL (1.6-2.3); POTASSIUM 4.2 mmol/l (3.5-5.1); SODIUM 137 mmol/l (137-146)
[2019-12-27 04:00] VITALS: BP 135/72
[2019-12-27 07:08] VITALS: BP 118/64
[2019-12-27] MEDS ORDERED: LOSARTAN POTASS50 MG PO ×2 (10:34)
[2019-12-27] MEDS ORDERED: HYDROCHLOROT12.5 M1 PO ×2 (10:35)
[2019-12-27 11:29] VITALS: BP 145/63
== END 2019-12-27 12:13 | disposition home or self-care (01) ==
LOC: ED 15:04 → ED-I 21:37 → ED 22:09 → MS2 22:10
PROVIDERS: Internal Medicine; Student in an Organized Health Care Education/Training Program; ADMIT Internal Medicine; ATTEND Internal Medicine
DX: I16.0 Hypertensive urgency (principal); I10 Essential (primary) hypertension; E87.6 Hypokalemia; E03.9 Hypothyroidism, unspecified; I25.10 Atherosclerotic heart disease of native coronary artery without angina pectoris; F41.9 Anxiety disorder, unspecified; J44.9 Chronic obstructive pulmonary disease, unspecified; Z20.828 Contact with and (suspected) exposure to other viral communicable diseases
CPT/HCPCS: G0378

== ENCOUNTER 2019-12-27 22:29 | Observation (INO) | payer MEDICARE ==
[~2019-12-27] VITALS: Ht 157.5 cm; Wt 77.8 kg
[~2019-12-27 22:29] MED LIST changes: +HYDROCHLOROT12.5 M1 PO; +LOSARTAN POTASS50 MG PO
[2019-12-27 23:32] LABS: HEMATOCRIT 42.4 % (37.0-47.0); HEMOGLOBIN 12.9 g/dl (12.0-16.0); IMMATURE GRANULOCYTES 0.1 % (0.0-5.0); MEAN CORPUSCULAR HGB 27.4 pG CALC (26.0-32.0); MEAN CORPUSCULAR HGB CONC 30.4 g/dL CAL (32.0-36.0); NEUT# 4.62 thou/uL (2.00-7.15); RED BLOOD COUNT 4.71 mill/uL (4.20-5.60); RED CELL DISTRI WIDTH 14.2 % (11.5-15.5)
[2019-12-27 23:50] LABS: ALBUMIN 4.1 g/dL (3.2-5.0); ALKALINE PHOSPHATASE 116 u/l (38-126); ANION GAP 11 (6-22 (CALC)); BILIRUBIN, TOTAL 0.3 mg/dL (0.0-1.4); BUN 16 mg/dL (8-23); BUN/CREATININE RATIO 21 (12-20 (CALC)); CARBON DIOXIDE 24 mmol/l (22-30); CHLORIDE 106 mmol/l (95-108); CREATININE 0.8 mg/dL (0.5-1.0); GFR > 60 ML/MIN (>=60 (CALC)); GFR FOR AFR.AMER. > 60 ML/MIN (>=60 (CALC)); POTASSIUM 3.4 mmol/l (3.5-5.1); SGOT/AST 21 u/l (9-36); SODIUM 138 mmol/l (137-146); TOTAL PROTEIN 7.3 g/dL (6.3-8.2)
[2019-12-28] VITALS (8 sets, daily range): BP systolic 101–172; BP diastolic 54–82
[2019-12-28 00:02] LABS: MYOGLOBIN 32 ng/mL (0 - 62)
[2019-12-28 01:16] LABS: URINE BILIRUBIN - DIPSTICK NEGATIVE (NEGATIVE); URINE BLOOD DIPSTICK NEGATIVE (NEGATIVE); URINE COLOR YELLOW; URINE GLUCOSE - DIPSTICK NEGATIVE (NEGATIVE); URINE KETONE NEGATIVE (NEGATIVE); URINE LEUK ESTERASE TRACE (NEGATIVE); URINE NITRITE - DIPSTICK NEGATIVE (Negative); URINE PH 5.5 (4.5-8.0); URINE PROTEIN - DIPSTICK NEGATIVE (NEG-TRACE); URINE SPECIFIC GRAVITY 1.015; URINE UROBILINOGEN - DIPSTICK 0.2 E.U./dL (0.2)
[2019-12-28 05:16] LABS: ANION GAP 10 (6-22 (CALC)); BUN 17 mg/dL (8-23); BUN/CREATININE RATIO 23 (12-20 (CALC)); CARBON DIOXIDE 25 mmol/l (22-30); CHLORIDE 105 mmol/l (95-108); CREATININE 0.7 mg/dL (0.5-1.0); GFR > 60 ML/MIN (>=60 (CALC)); GFR FOR AFR.AMER. > 60 ML/MIN (>=60 (CALC)); SODIUM 136 mmol/l (137-146)
[2019-12-28 05:19] LABS: POTASSIUM 4.3 mmol/l (3.5-5.1)
[2019-12-29 04:00] VITALS: BP 125/70
[2019-12-29 05:48] LABS: ANION GAP 10 (6-22 (CALC)); BUN 21 mg/dL (8-23); BUN/CREATININE RATIO 28 (12-20 (CALC)); CARBON DIOXIDE 27 mmol/l (22-30); CHLORIDE 103 mmol/l (95-108); CREATININE 0.7 mg/dL (0.5-1.0); GFR > 60 ML/MIN (>=60 (CALC)); GFR FOR AFR.AMER. > 60 ML/MIN (>=60 (CALC)); POTASSIUM 4.3 mmol/l (3.5-5.1); SODIUM 136 mmol/l (137-146)
[2019-12-29 09:39] VITALS: BP 144/71
[2019-12-29 09:43] VITALS: BP 144/71
[2019-12-29 10:30] VITALS: BP 154/79
== END 2019-12-29 13:52 | disposition home or self-care (01) ==
LOC: ED 22:29 → ED-I 22:57 → ED 22:57 → ED-I 12-28 00:19 → MS2 12-28 07:08
PROVIDERS: Emergency Medicine; ADMIT Internal Medicine; ATTEND Internal Medicine
DX: I16.0 Hypertensive urgency (principal); I10 Essential (primary) hypertension; I95.2 Hypotension due to drugs; T46.3X5A Adverse effect of coronary vasodilators, initial encounter; T40.2X5A Adverse effect of other opioids, initial encounter; F41.0 Panic disorder [episodic paroxysmal anxiety]; I25.10 Atherosclerotic heart disease of native coronary artery without angina pectoris; J44.9 Chronic obstructive pulmonary disease, unspecified; E03.9 Hypothyroidism, unspecified; Z20.828 Contact with and (suspected) exposure to other viral communicable diseases
CPT/HCPCS: G0378

== ENCOUNTER 2020-01-13 14:12 | Observation (INO) | payer MEDICARE ==
[~2020-01-13] VITALS: Ht 157.5 cm; Wt 78.6 kg
--- NOTE | 2020-01-13 14:25 | NUR ---
PT TO ROOM VIA WHEELCHAIR FOR BEDSIDE TRIAGE
--- NOTE | 2020-01-13 14:30 | NUR ---
TO CT SCAN STROKE ALERT CALLED
--- NOTE | 2020-01-13 14:30 | NUR ---
PT STATES THAT FOR ONE MONTH SHE HAS BEEN HAVING INCREASED BP. SHE IS CRYING AND STATING THAT THERE IS NUMBNESS TO RIGHT SIDE OF FACE. A SLIGHT DRIFT IS NOTED IN RIGHT LEG. NO FACIAL DROOP. NIH 2. BP AT 170s SYSTOLIC. PERRLA. CONFIRMS DIZZINESS, AND NAUSEA. DENIES SOB, OR CHEST PAIN. WILL CONTINUE TO MONITOR.
[2020-01-13 15:00] LABS: GFR > 60 ML/MIN (>=60 (CALC)); GFR FOR AFR.AMER. > 60 ML/MIN (>=60 (CALC))
[2020-01-13 15:16] LABS: ALBUMIN 4.1 g/dL (3.2-5.0); ALKALINE PHOSPHATASE 121 u/l (38-126); BILIRUBIN, TOTAL 0.3 mg/dL (0.0-1.4); BUN 16 mg/dL (8-23); BUN/CREATININE RATIO 22 (12-20 (CALC)); CHLORIDE 109 mmol/l (95-108); CREATININE 0.7 mg/dL (0.5-1.0); GFR > 60 ML/MIN (>=60 (CALC)); GFR FOR AFR.AMER. > 60 ML/MIN (>=60 (CALC)); POTASSIUM 3.8 mmol/l (3.5-5.1); SGOT/AST 22 u/l (9-36); SODIUM 144 mmol/l (137-146); TOTAL PROTEIN 7.5 g/dL (6.3-8.2)
[2020-01-13 15:19] LABS: ANION GAP 18 (6-22 (CALC)); CARBON DIOXIDE 21 mmol/l (22-30)
--- NOTE | 2020-01-13 15:30 | NUR ---
PT RESTING ON STRETCHER AND DENIES ANY NEEDS AT THIS TIME. DAUGHTER CALLED AND WITH PT PERMISSION INFO WAS GIVEN. PT DEMONSTRATED GRATITUDE FOR THE UPDATE WITH DAUGHTER. CALL LIGHT PLACED WITHIN REACH
[2020-01-13 15:40] LABS: HEMOGLOBIN 12.6 g/dl (12.0-16.0); IMMATURE GRANULOCYTES 0.2 % (0.0-5.0); MEAN CELL VOLUME 87.1 fL CALC (80.0-100.0); MEAN CORPUSCULAR HGB 27.5 pG CALC (26.0-32.0); MEAN CORPUSCULAR HGB CONC 31.5 g/dL CAL (32.0-36.0); NEUT# 6.19 thou/uL (2.00-7.15); RED BLOOD COUNT 4.59 mill/uL (4.20-5.60)
[2020-01-13 16:05] LABS: INTERNATIONAL NORMALIZED RATIO 0.9 RATIO (0.7-1.3); PROTHROMBIN TIME 9.3 SECONDS (9.0-12.5)
--- NOTE | 2020-01-13 16:14 | NUR ---
FAN PLACED FOR PATIENT COMFORT, PT STATES RELIEF
[2020-01-13] MEDS ORDERED: NORVASC5 M1 PO (16:15)
--- NOTE | 2020-01-13 17:05 | NUR ---
[facility] HERE, GAVE REPORT
--- NOTE | 2020-01-13 17:06 | NUR ---
GAVE REPORT TO AUSTIN
--- NOTE | 2020-01-13 17:10 | NUR ---
PT ARRIVED TO ROOM VIA WHEELCHAIR WITH ER STAFF; ALERT AND ORIENTED X 4. AMBULATED TO BATHROOM TO VOID; 300 ML CLEAR PALE YELLOW URINE; SPECIMEN SENT TO LAB. PT THEN AMBULATED TO BED WITH STEADY GAIT. DENIES PAIN, SOB, DIZZINESS. DOES REPORT NAUSEA WITH NO VOMITING. RESPIRATIONS EVEN AND UNLABORED ON ROOM AIR. PT IS TEARFUL, ANXIOUS, AND FRUSTRATED BUT ANSWERING ALL QUESTIONS AND COOPERATIVE. ORIENTED TO ROOM AND CALL LIGHT SYSTEM. PLAN OF CARE DISCUSSED. PT ENCOURAGED TO VERBALIZE CONCERNS. STATES UNDERSTANDING. SAFETY MEASURES IN PLACE. CALL LIGHT WITHIN REACH.
--- NOTE | 2020-01-13 17:10 | NUR ---
Admission Note Report Given to: AUSTIN Transported by: X Wheelchair Stretcher Transported with: X Nurse Transporter X Patent IV O2 X Talking Books Library Clerk Location: ICU X MS2
[2020-01-13 17:32] VITALS: BP 157/82
--- NOTE | 2020-01-13 17:56 | NUR ---
LAB AT BEDSIDE.
--- NOTE | 2020-01-13 18:12 | NUR ---
NIH SCORE OF 4; PT REPORTS FEELING WEAKER ON RIGHT SIDE; HOISTING ENGINE OPERATOR AND PEDAL PUSHES ARE EQUAL. RIGHT ARM DRIFT AND BLE DRIFT; ALL ABLE TO RESIST GRAVITY. RIGHT LEG MORE EDEMETOUS THAN LEFT LEG WHICH PT STATES IS NORMAL FOR HER; REPORTS BEING PLACED ON A DIURETIC ON LAST HOSPITAL DC, BUT WAS SINCE TAKEN OFF.
[2020-01-13 18:35] LABS: URINE BILIRUBIN - DIPSTICK NEGATIVE (NEGATIVE); URINE BLOOD DIPSTICK NEGATIVE (NEGATIVE); URINE COLOR YELLOW; URINE GLUCOSE - DIPSTICK NEGATIVE (NEGATIVE); URINE KETONE NEGATIVE (NEGATIVE); URINE LEUK ESTERASE NEGATIVE (NEGATIVE); URINE NITRITE - DIPSTICK NEGATIVE (Negative); URINE PH 5.5 (4.5-8.0); URINE PROTEIN - DIPSTICK NEGATIVE (NEG-TRACE); URINE UROBILINOGEN - DIPSTICK 0.2 E.U./dL (0.2)
[2020-01-13 19:02] VITALS: BP 143/64
--- NOTE | 2020-01-13 19:28 | NUR ---
VISITOR AT BEDSIDE, SHE GAVE ME HER NUMBER IN CASE WE NEEDED ANYTHING OVERNIGHT. ASSESSED PT NEURO'S. PT APPEARS ALL NEURO'S INTACT AT THIS TIME. WILL FOLLOW-UP WITH FURTHER ASSESSMENT .
--- NOTE | 2020-01-13 22:04 | NUR ---
PT MEDICATED ORDERS PROVIDE. NO S/O DISTRESS. PT SOUNDS A LITTLE WINDED/SOB, SHE STATED THAT SHE JUST AMBULATED TO RESTROOM AND SHE "GET THAT WAY SOMETIMES." PT DENIES N/V/D OR PAIN. NEURO'S ARE INTACT. PT SPEECH CLEAR. ACCOUNT DEVELOPMENT EXECUTIVE EQUAL, NO ATAXIA TO EXTREMETIES. SEE ASSESSEMENT IN CHARTING.
--- NOTE | 2020-01-13 22:12 | NUR ---
NEURO'S INTACT, PT SPEAKING CLEARLY, EQUAL PUPILS AND MACHINE CEMENTER, MOVING ALL EXTREMETIES EQUALLY. POSSIBLY SLIGHTLY WEAKER TO L.RESIDENT CARE SUPERVISOR OBSERVED W/ALL NEURO CHECKS. PT RECEIVED MEDICAITONS ORDERED AND OFFERED SONATA FOR SLEEP CHARLETTE DISCUSSED, PT NOW WANTS TO "wait" to see if she needs it. I INFORMED PT THAT I CANNOT ADMINISTER IT AFTER MIDNIGHT. WILL FOLLOW-UP WITH PT AND MONITOR FOR NEEDS. CALL LIGHT AT SIDE AND PT ENCOURAGED TO CALL.
--- NOTE | 2020-01-14 00:04 | NUR ---
MEDICATED PT WITH SLEEP AIDE. ASSISTED PT TO RESTROOM AND BACK TO BED. 500CC OF CLEAR YELLOW URINE EMPTIED AT THIS TIME. CALL LIGHT W/IN REACH AND PT ENCOURAGED TO CALL. ASSISTED PT REPOSITIONING IN BED FOR COMFORT.
[2020-01-14 00:07] VITALS: BP 128/73
[2020-01-14 03:58] VITALS: BP 132/59
[2020-01-14 05:48] LABS: CHOLESTEROL HDL RATIO 3.8 (<4.4 (CALC))
--- NOTE | 2020-01-14 07:15 | NUR ---
REPORT RECEIVED FROM DUTCH PRADO. PT RESTING IN BED SEMI FOWLERS; ALERT AND ORIENTED. ANXIOUS. DENIES PAIN. C/O LIGHTHEADEDNESS AND NAUSEA AFTER EATING SOME BREAKFAST. VSS. PT DOES HAVE EXERTIONAL SOB; SPO2 100% CURRENTLY ON RA. PLAN OF CARE REVIEWED. PT ENCOURAGED TO VERBALIZE CONCERNS. STATES UNDERSTANDING. SAFETY MEASURES IN PLACE. CALL LIGHT WITHIN REACH.
[2020-01-14 08:00] VITALS: BP 147/81
--- NOTE | 2020-01-14 08:46 | NUR ---
OFF UNIT VIA WHEELCHAIR FOR MRI.
--- NOTE | 2020-01-14 09:37 | NUR ---
RETURNED TO UNIT VIA STRETCHER.
--- NOTE | 2020-01-14 10:00 | NUR ---
PT SHOWERED AND MEDICATIONS GIVEN. PT DECLINED [place] DUE TO SIDE EFFECTS OF DIZZINESS AND HEADACHE; AMLODIPINE GIVEN AND ASA.
[2020-01-14] MEDS ORDERED: VALSARTAN160 MG PO (10:11)
[2020-01-14 11:15] VITALS: BP 147/63
[2020-01-14] MEDS ORDERED: XANAX0.25 MG PO (11:28)
--- NOTE | 2020-01-14 13:17 | NUR ---
IV site discontinued, cath intact. No edema , no redness, voices no discomfort.
--- NOTE | 2020-01-14 14:02 | NUR ---
Discharge instructions given. Patient verbalizes understanding of same. Discharged in stable condition via Wheelchair to Home with family. All belongings sent with pt.
== END 2020-01-14 14:02 | disposition home or self-care (01) ==
LOC: ED 14:12 → ED-I 14:51 → ED 16:04 → MS2 16:05
PROVIDERS: Family Medicine; Nurse Practitioner; ADMIT Internal Medicine; ATTEND Internal Medicine
DX: I10 Essential (primary) hypertension (principal); F41.0 Panic disorder [episodic paroxysmal anxiety]; I25.119 Atherosclerotic heart disease of native coronary artery with unspecified angina pectoris; J44.9 Chronic obstructive pulmonary disease, unspecified; E03.9 Hypothyroidism, unspecified; Z20.828 Contact with and (suspected) exposure to other viral communicable diseases
CPT/HCPCS: G0378; J1650

== ENCOUNTER 2020-05-18 19:51 | Emergency (ER) | payer MEDICARE ==
[~2020-05-18] VITALS: Ht 157.5 cm; Wt 77.0 kg
[~2020-05-18 19:51] MED LIST changes: +NORVASC5 M1 PO; +VALSARTAN160 MG PO; +XANAX0.25 MG PO
[2020-05-18] MEDS ORDERED: [UNRECOGNIZED DRUG - OTHER] (20:34)
[2020-05-18 21:07] LABS: HEMATOCRIT 42.2 % (37.0-47.0); HEMOGLOBIN 13.5 g/dl (12.0-16.0); IMMATURE GRANULOCYTES 0.2 % (0.0-5.0); MEAN CELL VOLUME 87.9 fL CALC (80.0-100.0); MEAN CORPUSCULAR HGB 28.1 pG CALC (26.0-32.0); NEUT# 6.12 thou/uL (2.00-7.15); RED BLOOD COUNT 4.8 mill/uL (4.20-5.60); RED CELL DISTRI WIDTH 14.6 % (11.5-15.5)
[2020-05-18 21:13] LABS: ALBUMIN 4.2 g/dL (3.2-5.0); ALKALINE PHOSPHATASE 116 u/l (38-126); ANION GAP 13 (6-22 (CALC)); BILIRUBIN, TOTAL 0.3 mg/dL (0.0-1.4); BUN 12 mg/dL (8-23); BUN/CREATININE RATIO 15 (12-20 (CALC)); CARBON DIOXIDE 24 mmol/l (22-30); CHLORIDE 108 mmol/l (95-108); CREATININE 0.8 mg/dL (0.5-1.0); GFR > 60 ML/MIN (>=60 (CALC)); GFR FOR AFR.AMER. > 60 ML/MIN (>=60 (CALC)); LIPASE 150 u/l (23-300); POTASSIUM 3.4 mmol/l (3.5-5.1); SGOT/AST 21 u/l (9-36); SODIUM 141 mmol/l (137-146); TOTAL PROTEIN 7.2 g/dL (6.3-8.2)
[2020-05-18 21:25] LABS: MYOGLOBIN 32 ng/mL (0 - 62)
[2020-05-18 21:59] LABS: URINE BILIRUBIN - DIPSTICK NEGATIVE (NEGATIVE); URINE BLOOD DIPSTICK NEGATIVE (NEGATIVE); URINE COLOR YELLOW; URINE GLUCOSE - DIPSTICK NEGATIVE (NEGATIVE); URINE KETONE NEGATIVE (NEGATIVE); URINE LEUK ESTERASE NEGATIVE (NEGATIVE); URINE NITRITE - DIPSTICK NEGATIVE (Negative); URINE PH 5.5 (4.5-8.0); URINE PROTEIN - DIPSTICK NEGATIVE (NEG-TRACE); URINE UROBILINOGEN - DIPSTICK 0.2 E.U./dL (0.2)
[2020-05-19] VITALS: BP 143/72
== END 2020-05-19 | disposition left against medical advice (07) ==
LOC: ED 19:51
PROVIDERS: Emergency Medicine
DX: R07.9 Chest pain, unspecified (principal); K44.9 Diaphragmatic hernia without obstruction or gangrene; I10 Essential (primary) hypertension; I25.10 Atherosclerotic heart disease of native coronary artery without angina pectoris; R11.2 Nausea with vomiting, unspecified; R19.7 Diarrhea, unspecified; Z91.19 Patient's noncompliance with other medical treatment and regimen; Z20.828 Contact with and (suspected) exposure to other viral communicable diseases

== ENCOUNTER 2020-07-16 06:25 | Day surgery (SDC) | payer MEDICARE ==
[~2020-07-16 06:25] MED LIST changes: +B121000 MC1 PO; +CALCIUM + D3 601 TAB PO; +COQ-10100 M1 PO; +GNP VITAMIN8000 UNIT PO; +SERTRALINE HCL25 MG PO; +VITAMIN B-1100 M1 PO; +VITAMIN C500 MG PO; +[UNRECOGNIZED DRUG - OTHER]
[2020-07-16 08:40] VITALS: BP 147/77
== END 2020-07-16 08:49 | disposition home or self-care (01) ==
LOC: ORM 06:25
PROVIDERS: ATTEND Surgery
PROC: 0DJD8ZZ Inspection of Lower Intestinal Tract, Via Natural or Artificial Opening Endoscopic (ICD-10-PCS; principal; 2020-07-16)
PROC: 0DB78ZX Excision of Stomach, Pylorus, Via Natural or Artificial Opening Endoscopic, Diagnostic (ICD-10-PCS; 2020-07-16)
DX: Z12.11 Encounter for screening for malignant neoplasm of colon (principal); K64.4 Residual hemorrhoidal skin tags; K44.9 Diaphragmatic hernia without obstruction or gangrene; K31.7 Polyp of stomach and duodenum; C64.2 Malignant neoplasm of left kidney, except renal pelvis; I10 Essential (primary) hypertension; I25.10 Atherosclerotic heart disease of native coronary artery without angina pectoris; Z87.19 Personal history of other diseases of the digestive system; Z20.822 Contact with and (suspected) exposure to COVID-19
CPT/HCPCS: 43251; G0121

== ENCOUNTER 2020-10-04 23:49 | Observation (INO) | payer MEDICARE ==
[~2020-10-04] VITALS: Ht 154.9 cm; Wt 73.0 kg
--- NOTE | 2020-10-04 23:49 | NUR ---
PT TO ROOM VIA EMS FOR BEDSIDE TRIAGE
[2020-10-05] MEDS ORDERED: LOVENOX80 MG/0.8 SC (00:38)
[2020-10-05 01:01] LABS: HEMATOCRIT 38.9 % (37.0-47.0); HEMOGLOBIN 12.1 g/dl (12.0-16.0); IMMATURE GRANULOCYTES 0.3 % (0.0-5.0); MEAN CELL VOLUME 88.4 fL CALC (80.0-100.0); MEAN CORPUSCULAR HGB 27.5 pG CALC (26.0-32.0); MEAN CORPUSCULAR HGB CONC 31.1 g/dL CAL (32.0-36.0); NEUT# 6.2 thou/uL (2.00-7.15); RED BLOOD COUNT 4.4 mill/uL (4.20-5.60); RED CELL DISTRI WIDTH 15.3 % (11.5-15.5)
--- NOTE | 2020-10-05 01:15 | NUR ---
IV ACCESS OBTAINED LAB WORK DRAWN EARLIER, DAUGHTER AT BEDSIDE PT STATES SHE HAD PAIN AT HOME IN RIB CAGE DENIES N/V SLIGHT FEVER ON ARRIVAL COMFORT MEASURES PROVIDED CALL SHETTY WITHIN REACH.
[2020-10-05 01:32] LABS: ALBUMIN 3.7 g/dL (3.2-5.0); ALKALINE PHOSPHATASE 158 u/l (38-126); ANION GAP 12 (6-22 (CALC)); BILIRUBIN, TOTAL 0.6 mg/dL (0.0-1.4); BUN 11 mg/dL (8-23); BUN/CREATININE RATIO 15 (12-20 (CALC)); CARBON DIOXIDE 25 mmol/l (22-30); CHLORIDE 104 mmol/l (95-108); CREATININE 0.8 mg/dL (0.5-1.0); GFR > 60 ML/MIN (>=60 (CALC)); GFR FOR AFR.AMER. > 60 ML/MIN (>=60 (CALC)); POTASSIUM 3.2 mmol/l (3.5-5.1); SGOT/AST 32 u/l (9-36); SODIUM 138 mmol/l (137-146); TOTAL PROTEIN 7.1 g/dL (6.3-8.2)
[2020-10-05 01:44] LABS: MYOGLOBIN 26 ng/mL (0 - 62)
--- NOTE | 2020-10-05 02:32 | NUR ---
PT PRE MEDICATED FOR CT CONTRAST RELATED TO ALLERGY, AWARE AND ORDERS REC'D.
--- NOTE | 2020-10-05 02:50 | NUR ---
PT AWARE OF PLANNED CT AT 0300, DAUGHTER REAMINS AT BEDSIDE.
--- NOTE | 2020-10-05 03:58 | NUR ---
PT RESTING NO COMPLAINTS OFFERED, DAUGHTER AT BEDSDIE AWARE OF PLANNED ADMISSION AND WILL BE LEAVING SHORTLY, CALL SHETTY WITHIN REACH.
--- NOTE | 2020-10-05 04:43 | NUR ---
REPORT CALLED TO EVE ON MED SURG ROOM 261 [id number] ASSIGNED.
[2020-10-05 05:04] VITALS: BP 175/82
--- NOTE | 2020-10-05 05:04 | NUR ---
PT ARRIVED TO MED SURG UNIT VIA WC ACCOMPANIED BY ED NURSE. PT APPEARS TO BE IN STABLE CONDITION. V/S ASSESSED AT THIS TIME. BP ELEVATED UPON ARRIVING TO UNIT, WILL SETTLE PT TO ROOM AND REASSESS V/S. PT ORIENTED TO ROOM, CALL SYSTEM, LIGHTS, BED AND TV. PO FLUIDS PROVIDED AT THIS TIME. PT REPORTS MILD PAIN TO L.SIDE OF CHEST "MUSCLE" AT THIS TIME.
--- NOTE | 2020-10-05 05:10 | NUR ---
PT TRANSPORTED TO MED SURG VIA WHEELCHAIR ALL BELONGING SENT IWHT PT ALONG WITH COMPLETED BELONGINGS RECORD. ACCEPTING NURSE EVE AWARE OF ARRIVAL TO UNIT.
--- NOTE | 2020-10-05 06:54 | NUR ---
CONTACTED RADIOLOGY TO CONFIRM THAT HE DOES NOT WANT PT PLACED NPO FOR BREAKFAST, HE STATED THAT IT IS OKAY FOR THE PT TO EAT BREAKFAST PRIOR TO PROCEDURE.
[2020-10-05 08:09] VITALS: BP 167/70
--- NOTE | 2020-10-05 08:10 | NUR ---
REPORT RECEIVED FROM DUTCH PRADO. PT SITTING UP ON EDGE OF BED EATING BREAKFAST; ALERT AND ORIENTED X 3; DENIES PAIN CURRENTLY; RESPIRATIONS SHALLOW AND UNLABORED; REPORTS MILD SOB. PERIPHERAL IV SITES X 2 APPEAR HEALTHY AND FLUSH; LUNG SOUNDS ARE CLEAR WITH DIMINISHED LEFT LOWER LOBE. TELE ON. POC REVIEWED INCLUDING SCHEDULED THORACENTESIS. PT ENCOURAGED TO VERBALIZE CONCERNS; STATES UNDERSTANDING; SAFETY MEASURES IN PLACE. CALL LIGHT WITHIN REACH.
--- NOTE | 2020-10-05 08:40 | NUR ---
AMBULATED TO BATHROOM FOR VOID; SEVERE LEFT UPPER CHEST PAIN WITH EXERTION; PAIN REDUCES WITH REST.
--- NOTE | 2020-10-05 08:51 | NUR ---
OFF UNIT VIA WHEELCHAIR FOR THORACENTESIS.
--- NOTE | 2020-10-05 09:30 | NUR ---
RETURNED FROM RADIOLOGY IN STABLE CONDITION VIA WHEEL CHAIR; DRY TRANSPARENT DRESSING CDI TO LEFT MIDDLE BACK. PT AMBULATED TO BED WITH STAND BY ASSIST. DR. ROSAS AND DANIELA DESIR NOW AT BEDSIDE.
--- NOTE | 2020-10-05 09:57 | NUR ---
EXPERIENCING INCREASED DISCOMFORT INCLUDING 10/10 LEFT FLANK/UNDERNEATH LEFT BREAST PAIN WITH NAUSEA. NEW ORDERS RECEIVED; MORPHINE AND ZOFRAN ADMINISTERED ALONG WITH OTHER SCHEDULED MEDICATIONS. WILL CONTINUE TO MONITOR.
--- NOTE | 2020-10-05 10:34 | NUR ---
PAIN LEVEL DECREASED TO 5/10 AFTER MORPHINE; PT SITTING UP TALKING ON CELL PHONE; CONTINUES TO HAVE SEVERE PAIN WITH MOVEMENT. LEVAQUIN INFUSING WITHOUT DIFFICULTY INTO LAC #20; EMS SITE TO RAC DISCONTINUED; CATH TIP INTACT; PT TOLERATED WELL. INCENTIVE SPIROMETER GIVEN AND PT EDUCATED ON USE; DEMONSTRATED UNDERSTANDING; VOLUME UP TO 500; PILLOW PROVIDED FOR SPLINTING DUE TO PAIN TO LEFT RIB AREA ON INSPIRATION.
[2020-10-05 11:00] VITALS: BP 127/64
--- NOTE | 2020-10-05 14:48 | NUR ---
MORPHINE GIVEN FOR 10/10 LEFT RIB PAIN; REPORTS THAT SHE HAS HAD MILD NAUSEA SINCE EATING LUNCH; DECLINES OFFER FOR NORI AT THIS TIME STATING THAT SHE WILL SEE HOW THE MORHINE WORKS FIRST. REQUESTED ICE TO DRINK HER ENSURE WITH. WILL CONTINUE TO MONITOR.
[2020-10-05 15:01] VITALS: BP 114/61
--- NOTE | 2020-10-05 18:36 | NUR ---
PT ENCOURAGED TO GET UP FOR VOID; SPECIMEN OBTAINED AND SENT TO LAB.
[2020-10-05 19:00] VITALS: BP 126/64
--- NOTE | 2020-10-05 20:13 | NUR ---
PT MEDICATED ORDERS PROVIDE AND ASSESSMENT COMPLETED AT THIS TIME. THOROCENTESIS SITE TO POSTERIOR LEFT SIDE OF FLANK IS CDI. PT REPORTS CONSTANT THROBBING 5/10 ON THAT LEFT SIDE OF RIB CAGE JUST BELOW LEFT BREAST. DENIES TYLENOL OR MORPHINE AT THIS TIME, I ENCOURAGED HER NOT TO LET IT GET TOO HIGH AND NOT TO HESITATE TO CALL IF SHE FEELS SHE WANTS TO TAKE SOMETHING FOR THE PAIN. PT EXPERIENCES SLIGHT SOB UPON TALKING OR AMBULATION, BUT REPORTS THAT SHE IS NOT HAVING THE SHARP PAINS WHEN SHE MOVES SHE WAS HAVING THE PREVIOUS DAY. ABD SOFT NON-TENDER TO PALPATION, REPORTS NOT HAVING URINATING MUCH THIS DAY AND NOT FEELING THE NEED TO URINATE. WILL REASSESS, DAY NURSE REPORTED THAT THE PT WAS UP AND URINATED 350CC JUST PRIOR TO MY COMING ONTO SHIFT THIS EVENING, URINE WAS SENT TO THE LAB AT THIS TIME.
[2020-10-05 20:21] LABS: URINE BILIRUBIN - DIPSTICK NEGATIVE (NEGATIVE); URINE BLOOD DIPSTICK MODERATE (NEGATIVE); URINE COLOR YELLOW; URINE GLUCOSE - DIPSTICK NEGATIVE (NEGATIVE); URINE KETONE NEGATIVE (NEGATIVE); URINE LEUK ESTERASE NEGATIVE (NEGATIVE); URINE PROTEIN - DIPSTICK TRACE mg/dL (NEG-TRACE); URINE SPECIFIC GRAVITY 1.015; URINE UROBILINOGEN - DIPSTICK 0.2 E.U./dL (0.2)
[2020-10-05 20:25] LABS: URINE NITRITE - DIPSTICK NEGATIVE (Negative)
[2020-10-05 20:31] LABS: URINE SQUAMOUS EPITHELIAL CELL FEW EPI/hpf (0-FEW); URINE WBC 0-2 WBC/hpf (0-5)
--- NOTE | 2020-10-05 21:38 | NUR ---
PT MEDICATED WITH ZOFRAN AND MORPHINE FOR PAIN. ZOFRAN TO PREVENT NAUSEA SHE REPORTED HAVING IN RESPONSE TO THE MORPHINE EARLIER IN THE DAY. EXTRA PILLOW PROVIDED FOR PT TO USE TO SPLINT AND DISCUSSED DEEP BREATHING EXERCISES. IS AT BEDSIDE. VERBALIZED UNDERSTANDING OF THIS NEED.
[2020-10-06] VITALS: BP 122/65
[2020-10-06 04:39] VITALS: BP 118/71
--- NOTE | 2020-10-06 05:00 | NUR ---
ASSISTED PT TO RESTROOM AND BACK TO BED. PT SOB ON EXERTION AND C/O PAIN IN L.FLANK AND L.UPPER ABD UPON AMBULATING. DENIES ANY PAIN MEDICATION AT THIS TIME. ENCOURAGED HER TO CALL IF SHE NEEDS MEDICATION OR ANY OTHER NEEDS, VERBALIZED UNDERSTANDING. CALL LIGHT IS W/IN REACH.
[2020-10-06 05:23] LABS: HEMATOCRIT 34.8 % (37.0-47.0); HEMOGLOBIN 10.7 g/dl (12.0-16.0); MEAN CELL VOLUME 89.5 fL CALC (80.0-100.0); MEAN CORPUSCULAR HGB 27.5 pG CALC (26.0-32.0); MEAN CORPUSCULAR HGB CONC 30.7 g/dL CAL (32.0-36.0); RED BLOOD COUNT 3.89 mill/uL (4.20-5.60); RED CELL DISTRI WIDTH 15.4 % (11.5-15.5)
[2020-10-06 05:47] LABS: CREATININE 1.1 mg/dL (0.5-1.0); MAGNESIUM 2.1 mg/dL (1.6-2.3)
[2020-10-06 05:49] LABS: POTASSIUM 4.3 mmol/l (3.5-5.1)
[2020-10-06 07:33] VITALS: BP 138/63
--- NOTE | 2020-10-06 08:04 | NUR ---
SHIFT CHANGE REPORT, PT AWAKE ALERT AND ORIENTED RESTING IN BED, C/O SEVERE LEFT FLANK PAIN @ 10/10 AT THIS TIME, CONCERN PROMPTLY ADDRESSED, TELE MONITOR IN PLACE, ADVISED/REMINDED TO USE CALL SHETTY FOR HELP AT ALL TIMES, CALL SHETTY IN REACH AND BED LOCKED IN LOWEST POSITION.
--- NOTE | 2020-10-06 10:17 | NUR ---
DAUGHTER NELLIE CALL STATING PT C/O TO HER OF BEING UNABLE TO BREATHE, PT ASSESSED AND DOES HAVE LLQ PAIN WHICH AFFECTS HER NORMAL BREATHING; HOWEVER PT IS NOT IN RESPIRATORY DISTRESS AND PAIN MANAGEMENT IS BEING ADDRESSED BY MEDICAL TEAM. NELLIE JIMENEZ STAFF IS ADDRESSING CONCERNS AND WILL KEEP HER INFORMED THEREFORE SHE SHOULD NOT PANIC SHE LEFT HER JOB TO COME HERE TO [facility].
[2020-10-06 10:24] VITALS: BP 100/65
--- NOTE | 2020-10-06 12:38 | NUR ---
RESTING IN BED, PAIN STILL NOT CONTROLLED AFTER NEW ANALGESIC ORDER AND GIVEN, PT CONTINUES TO BE NAUTIOUS AND UNABLE TO TOLERATE MEALS, MD AWARE, WILL CONTINUE TO MONITOR.
[2020-10-06 15:08] VITALS: BP 106/62
--- NOTE | 2020-10-06 16:08 | NUR ---
PHYSICAL THERAPIST ROUNDED AND WORKED WITH PT, PT STATES SHE IS WORN OUT FROM THERAPY, RESTING IN SUPINE POSITION IN BED, ALL NEEDS ADDRESS, CALL SHETTY IN REACH.
--- NOTE | 2020-10-06 16:09 | NUR ---
PT STATES SHE IS FEELING SLIGHTLY BETTER, NEW ORDERS WRITEN BY MEDICAL CARE TEAM, PAIN CONCERNS BEING MONITORED AND ADDRESSED, PT IS RESTING IN SUPINE POSITION AT THIS TIME, FAMILY MEMBER VISITING, WILL CONTINUE TO MONITOR.
--- NOTE | 2020-10-06 16:12 | NUR ---
SLEEPING IN SUPINE POSITION IN BED AT THIS TIME, BREATHING EVEN AND NON-LABORED, NO SIGN DISCOMFORT, CALL SHETTY IN REACH.
--- NOTE | 2020-10-06 16:32 | NUR ---
KELLIE VENTURAELLE HAD MANY QUESTIONS AND CONCERNS ABUT PT AND WANTS TO SPEAK WITH MD ABOUT WORSENING CONDITION SHE PERCEIVES IT, ADVISED TO CALL IN AM WHEN TEAM IS HERE, MESSAGE WILL BE LEFT FOR TEAM TO CONTACH HER.
--- NOTE | 2020-10-06 16:38 | NUR ---
RESTING COMFORTABLY IN BED AT THIS TIME, STATES ITS THE FIRST TIME TODAY SINCE SHE HAS FELT SUCH RELIEF AND FEELS MUCH BETTER NOW, WILL CONTINUE TO MONITOR.
[2020-10-06 19:00] VITALS: BP 116/60
--- NOTE | 2020-10-06 19:45 | NUR ---
PT RESTING QUIETLY IN BED UPON TIME OF ASSESSMENT. MINIMAL PAIN REPORTED AT THIS TIME. DECLINES ANY PAIN MEDICATION COVERAGE. BREATHING EVEN AND UNLABORED, SLIGHTLY SHALLOW. DENIES SOB AT THIS TIME. #20 TO LAC REMAINS, FLUSHES EASILY. ASSESSMENT COMPLETED, PLEASE SEE DOCUMENTATION. SAFETY PRECAUTIONS IN PLACE. BED IN LOWEST POSITION, CALL L8IGHT WITHIN REACH
[2020-10-07] VITALS (7 sets, daily range): BP systolic 102–164; BP diastolic 50–76
--- NOTE | 2020-10-07 00:28 | NUR ---
PT RESTING COMFORTABLY IN BED WITH EYES CLOSED. NO OUTWARD S/S OF PAIN NOTED. BREATHING EVEN AND UNLABORED, NO S/S OF RESPIRATORY DISTRESS NOTED. SAFETY PRECAUTIONS REMAIN IN PLACE. WILL MONITOR
[2020-10-07 05:35] LABS: HEMATOCRIT 35.5 % (37.0-47.0); HEMOGLOBIN 10.8 g/dl (12.0-16.0); IMMATURE GRANULOCYTES 0.3 % (0.0-5.0); MEAN CELL VOLUME 90.1 fL CALC (80.0-100.0); MEAN CORPUSCULAR HGB 27.4 pG CALC (26.0-32.0); MEAN CORPUSCULAR HGB CONC 30.4 g/dL CAL (32.0-36.0); NEUT# 6.3 thou/uL (2.00-7.15); RED BLOOD COUNT 3.94 mill/uL (4.20-5.60); RED CELL DISTRI WIDTH 15.8 % (11.5-15.5)
--- NOTE | 2020-10-07 05:53 | NUR ---
PT RESTING COMFORTABLY IN BED WITH HER EYES CLOSED. C/O PAIN TO LUQ, ADMINSTERED IV DILAUDID PER ORDER. NO OTHER COMPLAINTS VOICED. PT INDICATED SHE USUALLY HAS MEDICATION FOR NAUSEA WITH PAIN MEDICATION, NAUSEA MEDICATION OFFERED, PT INDICATED SHE WILL JUST TRY A MACIEL SIDNEY FOR NOW. MACIEL SIDNEY EFFECTIVE FOR NAUSEA. SAFETY PRECAUTIONS IN PLACE, WILL MONITOR
[2020-10-07 06:01] LABS: BILIRUBIN, TOTAL 0.4 mg/dL (0.0-1.4); CREATININE 1.7 mg/dL (0.5-1.0); POTASSIUM 4.3 mmol/l (3.5-5.1); TOTAL PROTEIN 5.8 g/dL (6.3-8.2)
--- NOTE | 2020-10-07 07:21 | NUR ---
PATIENT RESTING IN BED AT THIS TIME-CONT TO BE A-FIB RVR WITH RATE OF 130 PER ER MONITORING. PATIENT WAS ALREADY MEDICATED WITH HER CORDARONE THIS MORNING ORDERED. PATIENT REMAINS ASYMPTOMATIC-NO CHEST PAIN, NO PALPATATIONS, NO SOB. DR. CONTRERAS CALLED AND NEW ORDERS RECEIVED. PATIENT MEDICATED WITH CARIZEM 10MG SLOW IVP GIVEN ORDERED. RE-CHECKED WITH ER AND STATES THAT THE PATIENT REMAINS IN A-FIB RVR-130. WILL CONT TO MONITOR.
--- NOTE | 2020-10-07 07:23 | NUR ---
PT LAYING IN BED. A&O X4. NO DISTRESS NOTED. PT DENIES ANY PAIN AT THIS TIME. PT C/O OF SLIGHT NAUSEA, OFFERED MEDICATION, REFUSED AT THIS TIME. PT STATES THAT HER PAIN IS WORSE WHEN SHE MOVES OR WALKS AROUND, BUT IMPROVES ONCE COMFORTABLE. CLEAR BREATH SOUNDS UPON AUSCULTATION. ACTIVE BOWEL SOUNDS X4 QUADS. ACREAGE REPORTER IN PLACE. #24 TO LAC HEALTHY AND PATENT. NO NEEDS AT THIS TIME. ASSESSMENT COMPLETED. DISCUSSED POC. CALL LIGHT LEFT WITHIN REACH.
--- NOTE | 2020-10-07 09:37 | NUR ---
DR WEINER AND Ju MARSH VAULT ATTENDANT AT BEDSIDE DISCUSSING POC
--- NOTE | 2020-10-07 11:11 | NUR ---
PT SITTING ON THE SIDE OF THE BED ATTEMPTING TO EAT LUNCH. IVF INITIATED ALONG WITH SCHEDULED ABX. IV REMAINS HEALTHY AND PATENT. PT INSTRUCTED IF PAIN OR SWELLING WAS NOTED AT SITE, PT VERBALIZED UNDERSTANDING. PT OFFERED PAIN MEDICATION FOR DISCOMFORT THAT WAS NOTED, PT REFUSED AT THIS TIME. EDUCATION GIVEN ON LORTAB - ANOTHER PAIN MEDICATION AVAILABLE TO PT, PT NOT WANTING THE MEDICATION AT THIS TIME. CALL LIGHT LEFT WITHIN REACH.
--- NOTE | 2020-10-07 15:49 | NUR ---
PT EDUCATION GIVEN ON FIRST DOSE OF LYRICA. PT VERBALIZED UNDERSTANDING. DENIES THE NEED OF PAIN MEDICATION AT THIS TIME. CALL LIGHT WITHIN REACH.
[2020-10-07] MEDS ORDERED: ZOFRAN4 MG/TAB PO (17:03)
[2020-10-07] MEDS ORDERED: LYRICA75 MG PO (17:03)
[2020-10-07] MEDS ORDERED: HYDROCO/APAP1 TA9 PO (17:03)
--- NOTE | 2020-10-07 20:00 | NUR ---
PT RESTING QUIETLY IN BED. DENIES PAIN AT THIS TIME. PT STARTED ON LYRICA THIS AM FOR REPORTED NERVE PAIN. DISUSSED WITH PT THE INDICATION AND SIDE EFFECTS ASSOCIATED WITH LYRICA. PT VERBALIZED UNDERSTANDING TO INSTRUCTION GIVEN. BREATHIG EVEN AND UNLBORED. ASSESSMENTS COMPLETED, PLESE SEE DOCUMENTTION. SAFETY PRECAUTIONS IN PLACE, BED IN LOWEST POSITION, CALL LIGHT WITHIN REACH. WILL MONITOR
--- NOTE | 2020-10-08 00:15 | NUR ---
T RESTING IN BED, CONTINUES TO DENY PAIN. NO COMPLAINTS VOICED. PT IS ABLE TO MAKE HER NEEDS KNOWN. BREATHING EVEN AND UNLABORED. NO S/S OF DISTRESS. SAFETY PRECAUTIONS IN PLACE. WILL MONITOR
[2020-10-08 03:45] VITALS: BP 138/75
--- NOTE | 2020-10-08 04:13 | NUR ---
PT IS RESTING QUIETLY WITH HER EYES CLOSED. NO PAIN REPORTED. NO COMPLAINTS VOICED. SAFETY PRECAUTIONS REMAIN IN PLACE.
[2020-10-08 05:41] LABS: HEMATOCRIT 33.6 % (37.0-47.0); HEMOGLOBIN 10.3 g/dl (12.0-16.0); MEAN CELL VOLUME 90.6 fL CALC (80.0-100.0); MEAN CORPUSCULAR HGB 27.8 pG CALC (26.0-32.0); MEAN CORPUSCULAR HGB CONC 30.7 g/dL CAL (32.0-36.0); RED BLOOD COUNT 3.71 mill/uL (4.20-5.60); RED CELL DISTRI WIDTH 15.5 % (11.5-15.5)
[2020-10-08 06:05] LABS: CREATININE 1.2 mg/dL (0.5-1.0)
[2020-10-08 07:15] VITALS: BP 141/71
--- NOTE | 2020-10-08 07:15 | NUR ---
PATIENT LAYING IN BED AT THIS TIME. PATIENT ALERT AND ORIENTED X 3. PATIENT STATES THAT HER PAIN LEVEL IS ONLY A "3" AT THIS TIME AND IS VERY TOLERABLE AND DENIES NEED FOR PAIN MEDICATION. 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 LUNG RATLIFF ARE CLEAR THROUGH OUT ALL RATLIFF. PATIENT STATED SHE HAD TWO SMALL BM'S ON 10/07/20. SIDERAILS ARE UP CALL LIGHT IS WITHIN REACH.
[2020-10-08 10:49] VITALS: BP 121/66
--- NOTE | 2020-10-08 10:50 | NUR ---
PATIENT D/C AT THIS TIME. PATIENT VERBALIZES UNDERSTANDING OF ALL D/C INSTRUCTIONS AT THIS TIME.
--- NOTE | 2020-10-08 11:46 | NUR ---
CARE RESUMED. PT RESTING IN SEMI FOWLERS POSITION. RESPIRATIONS ARE EVEN AND UNLABORED WITH NO DISTRESS NOTED ON ROOM AIR. PT INFORMED THAT DC WAS PENDING DUE TO SPEAKING WITH MD. PT VERBALIZED UNDERSTANDING.ALL SAFTEY PRECAUTIONS ARE IN PLACE. ENCOURAGED PT TO CALL FOR ASSISTANCE WHEN NEEDED. WILL CONTINUE TO MONITOR.
--- NOTE | 2020-10-08 12:36 | NUR ---
PT EDUCATED ON DC INSTRUCTIONS AND NEW MEDICAITIONS. PT VERBALIZED UNDERSTANDING. TELE MONITORING REMOVED, ER NOTFIED. PT DENIES ASSISTANCE GETTING DRESSED. WAITING FOR TRANSPORTATION AT THIS TIME. ALL SFATEY PRECAUTIONS REMAINS IN PLACE.
--- NOTE | 2020-10-08 12:53 | NUR ---
Discharge instructions given. Patient verbalizes understanding of same. Discharged in stable condition via Wheelchair to Home with staff. All belongings sent with pt. PT DC IN STABLE CONDITION HOME WITH PT AND HOME HEALTH. PT DC WITH ALL DC INSTRUCTIONS AND BELONGINGS.
== END 2020-10-08 12:53 ==
LOC: ED 23:49 → ED-I 10-05 04:10 → ED 10-05 04:21 → MS2 10-05 04:22
PROVIDERS: Emergency Medicine; Nurse Practitioner; ADMIT Internal Medicine; ATTEND Internal Medicine
PROC: 0W9B3ZZ Drainage of Left Pleural Cavity, Percutaneous Approach (ICD-10-PCS; principal; 2020-10-05)
PROC: BB4BZZZ Ultrasonography of Pleura (ICD-10-PCS; 2020-10-05)
DX: G62.9 Polyneuropathy, unspecified (principal); C64.2 Malignant neoplasm of left kidney, except renal pelvis; J91.8 Pleural effusion in other conditions classified elsewhere; N17.9 Acute kidney failure, unspecified; I12.9 Hypertensive chronic kidney disease with stage 1 through stage 4 chronic kidney disease, or unspecified chronic kidney disease; N18.9 Chronic kidney disease, unspecified; E03.9 Hypothyroidism, unspecified; J44.9 Chronic obstructive pulmonary disease, unspecified; I25.119 Atherosclerotic heart disease of native coronary artery with unspecified angina pectoris; E87.6 Hypokalemia; Z79.01 Long term (current) use of anticoagulants; Z86.711 Personal history of pulmonary embolism; Z20.822 Contact with and (suspected) exposure to COVID-19
CPT/HCPCS: G0378; J1650; Q9967

== ENCOUNTER 2021-03-31 13:47 | Emergency (ER) | payer MEDICARE ==
[~2021-03-31] VITALS: Ht 154.9 cm; Wt 78.0 kg
[~2021-03-31 13:47] MED LIST changes: +HYDROCO/APAP1 TA9 PO; +LOVENOX80 MG/0.8 SC; +LYRICA75 MG PO; +ZOFRAN4 MG/TAB PO
[2021-03-31 14:24] LABS: IMMATURE GRANULOCYTES 0.1 % (0.0-5.0); MEAN CELL VOLUME 86.5 fL CALC (80.0-100.0); MEAN CORPUSCULAR HGB 27.5 pG CALC (26.0-32.0); MEAN CORPUSCULAR HGB CONC 31.8 g/dL CAL (32.0-36.0); NEUT# 3.75 thou/uL (2.00-7.15); RED BLOOD COUNT 4.65 mill/uL (4.20-5.60); RED CELL DISTRI WIDTH 16.1 % (11.5-15.5)
[2021-03-31 14:28] LABS: HEMATOCRIT 40.2 % (37.0-47.0); HEMOGLOBIN 12.8 g/dl (12.0-16.0)
[2021-03-31 14:35] LABS: ALKALINE PHOSPHATASE 96 u/l (38-126); BILIRUBIN, TOTAL 0.5 mg/dL (0.0-1.4); BUN 11 mg/dL (8-23); BUN/CREATININE RATIO 14 (12-20 (CALC)); CARBON DIOXIDE 26 mmol/l (22-30); CHLORIDE 106 mmol/l (95-108); CREATININE 0.8 mg/dL (0.5-1.0); GFR > 60 ML/MIN (>=60 (CALC)); GFR FOR AFR.AMER. > 60 ML/MIN (>=60 (CALC)); SGOT/AST 18 u/l (9-36); SODIUM 142 mmol/l (137-146)
[2021-03-31 14:37] LABS: ANION GAP 13 (6-22 (CALC)); TOTAL PROTEIN 7.3 g/dL (6.3-8.2)
[2021-03-31 16:36] VITALS: BP 170/96
== END 2021-03-31 16:36 | disposition short-term general hospital (02) ==
LOC: ED 13:47
PROVIDERS: Family Medicine
DX: I20.0 Unstable angina (principal); I10 Essential (primary) hypertension; E03.9 Hypothyroidism, unspecified; Z86.711 Personal history of pulmonary embolism; Z85.528 Personal history of other malignant neoplasm of kidney
CPT/HCPCS: J1644

== ENCOUNTER 2021-06-30 17:39 | Emergency (ER) | payer MEDICARE ==
[~2021-06-30] VITALS: Ht 154.9 cm; Wt 71.0 kg
[2021-06-30 18:45] LABS: HEMATOCRIT 46.3 % (37.0-47.0); HEMOGLOBIN 14.8 g/dl (12.0-16.0); IMMATURE GRANULOCYTES 0.1 % (0.0-5.0); MEAN CELL VOLUME 91.3 fL CALC (80.0-100.0); MEAN CORPUSCULAR HGB 29.2 pG CALC (26.0-32.0); NEUT# 5.84 thou/uL (2.00-7.15); RED BLOOD COUNT 5.07 mill/uL (4.20-5.60); RED CELL DISTRI WIDTH 15.2 % (11.5-15.5)
[2021-06-30 18:58] LABS: ALBUMIN 4.3 g/dL (3.2-5.0); ALKALINE PHOSPHATASE 108 u/l (38-126); ANION GAP 15 (6-22 (CALC)); BILIRUBIN, TOTAL 0.5 mg/dL (0.0-1.4); BUN 12 mg/dL (8-23); BUN/CREATININE RATIO 15 (12-20 (CALC)); CARBON DIOXIDE 24 mmol/l (22-30); CHLORIDE 106 mmol/l (95-108); CREATININE 0.8 mg/dL (0.5-1.0); GFR > 60 ML/MIN (>=60 (CALC)); GFR FOR AFR.AMER. > 60 ML/MIN (>=60 (CALC)); POTASSIUM 3.5 mmol/l (3.5-5.1); SGOT/AST 22 u/l (9-36); SODIUM 141 mmol/l (137-146); TOTAL PROTEIN 7.7 g/dL (6.3-8.2)
[2021-06-30 19:10] LABS: MYOGLOBIN 34 ng/mL (0 - 62)
[2021-06-30] MEDS ORDERED: AMLODIPINE BESYL5 MG PO (21:40)
[2021-06-30 22:11] VITALS: BP 120/60
== END 2021-06-30 22:38 | disposition home or self-care (01) ==
LOC: ED 17:39
PROVIDERS: Family Medicine
DX: I10 Essential (primary) hypertension (principal); E03.9 Hypothyroidism, unspecified; Z86.711 Personal history of pulmonary embolism; Z85.528 Personal history of other malignant neoplasm of kidney

== ENCOUNTER 2022-02-04 12:51 | Observation (INO) | payer MEDICARE ==
[2022-02-04] VITALS (10 sets, daily range): BP systolic 149–186; BP diastolic 65–79
[~2022-02-04] VITALS: Ht 157.5 cm; Wt 69.5 kg
[~2022-02-04 12:51] MED LIST changes: +AMLODIPINE BESYL5 MG PO
[2022-02-04 14:11] LABS: HEMATOCRIT 41.7 % (37.0-47.0); HEMOGLOBIN 14.2 g/dl (12.0-16.0); IMMATURE GRANULOCYTES 0.3 % (0.0-5.0); MEAN CELL VOLUME 89.5 fL CALC (80.0-100.0); MEAN CORPUSCULAR HGB 30.5 pG CALC (26.0-32.0); MEAN CORPUSCULAR HGB CONC 34.1 g/dL CAL (32.0-36.0); NEUT# 4.67 thou/uL (2.00-7.15); RED BLOOD COUNT 4.66 mill/uL (4.20-5.60); RED CELL DISTRI WIDTH 13.9 % (11.5-15.5)
[2022-02-04 14:25] LABS: ALBUMIN 4.4 g/dL (3.2-5.0); ALKALINE PHOSPHATASE 97 u/l (38-126); ANION GAP 14 (6-22 (CALC)); BILIRUBIN, TOTAL 0.3 mg/dL (0.0-1.4); BUN 10 mg/dL (8-23); BUN/CREATININE RATIO 12 (12-20 (CALC)); CARBON DIOXIDE 26 mmol/l (22-30); CHLORIDE 107 mmol/l (95-108); CREATININE 0.8 mg/dL (0.5-1.0); GFR FOR AFR.AMER. > 60 ML/MIN (>=60 (CALC)); GFR OTHER RACES > 60 ML/MIN (>=60 (CALC)); POTASSIUM 3.2 mmol/l (3.5-5.1); SGOT/AST 21 u/l (9-36); SODIUM 143 mmol/l (137-146); TOTAL PROTEIN 7.4 g/dL (6.3-8.2)
[2022-02-04] MEDS ORDERED: DIOVAN320 MG PO (16:35)
[2022-02-04] MEDS ORDERED: AMLODIPINE BESY10 MG PO (16:36)
[2022-02-04 20:38] LABS: URINE BILIRUBIN - DIPSTICK NEGATIVE (NEGATIVE); URINE BLOOD DIPSTICK NEGATIVE (NEGATIVE); URINE COLOR YELLOW; URINE GLUCOSE - DIPSTICK NEGATIVE (NEGATIVE); URINE KETONE NEGATIVE (NEGATIVE); URINE LEUK ESTERASE SMALL (NEGATIVE); URINE NITRITE - DIPSTICK NEGATIVE (Negative); URINE PROTEIN - DIPSTICK NEGATIVE (NEG-TRACE); URINE SPECIFIC GRAVITY <=1.005; URINE UROBILINOGEN - DIPSTICK 0.2 E.U./dL (0.2)
[2022-02-04 20:46] LABS: URINE WBC 0-2 WBC/hpf (0-5)
[2022-02-05 00:18] VITALS: BP 155/65
[2022-02-05 04:22] VITALS: BP 128/63
[2022-02-05 06:22] LABS: ALBUMIN 3.3 g/dL (3.2-5.0); ALKALINE PHOSPHATASE 75 u/l (38-126); ANION GAP 10 (6-22 (CALC)); BILIRUBIN, TOTAL 0.5 mg/dL (0.0-1.4); BUN 11 mg/dL (8-23); BUN/CREATININE RATIO 12 (12-20 (CALC)); CARBON DIOXIDE 23 mmol/l (22-30); CHLORIDE 108 mmol/l (95-108); CREATININE 0.9 mg/dL (0.5-1.0); GFR FOR AFR.AMER. > 60 ML/MIN (>=60 (CALC)); GFR OTHER RACES > 60 ML/MIN (>=60 (CALC)); MAGNESIUM 1.8 mg/dL (1.6-2.3); SGOT/AST 18 u/l (9-36); SODIUM 138 mmol/l (137-146); TOTAL PROTEIN 5.6 g/dL (6.3-8.2)
[2022-02-05 06:28] LABS: HEMATOCRIT 37.2 % (37.0-47.0); HEMOGLOBIN 12.7 g/dl (12.0-16.0); IMMATURE GRANULOCYTES 0.2 % (0.0-5.0); MEAN CELL VOLUME 88.4 fL CALC (80.0-100.0); MEAN CORPUSCULAR HGB 30.2 pG CALC (26.0-32.0); MEAN CORPUSCULAR HGB CONC 34.1 g/dL CAL (32.0-36.0); NEUT# 3.58 thou/uL (2.00-7.15); RED BLOOD COUNT 4.21 mill/uL (4.20-5.60); RED CELL DISTRI WIDTH 13.9 % (11.5-15.5)
[2022-02-05 07:20] VITALS: BP 130/70
[2022-02-05 08:14] VITALS: BP 141/65
[2022-02-05] MEDS ORDERED: ASPIRIN 81 LOW81 MG PO (11:08)
[2022-02-05 11:42] VITALS: BP 140/66
== END 2022-02-05 12:55 | disposition home or self-care (01) ==
LOC: ED 12:51 → ED-I 15:38 → ED 15:50 → MS2 15:51
PROVIDERS: Family Medicine; ADMIT Internal Medicine; ATTEND Internal Medicine
DX: I25.110 Atherosclerotic heart disease of native coronary artery with unstable angina pectoris (principal); I10 Essential (primary) hypertension; E03.9 Hypothyroidism, unspecified; J44.9 Chronic obstructive pulmonary disease, unspecified; R20.0 Anesthesia of skin; Z86.711 Personal history of pulmonary embolism; Z85.528 Personal history of other malignant neoplasm of kidney; Z20.822 Contact with and (suspected) exposure to COVID-19

== ENCOUNTER 2023-06-15 13:03 | Observation (INO) | payer MEDICARE ==
[2023-06-15] VITALS (29 sets, daily range): BP systolic 103–179; BP diastolic 51–107
[~2023-06-15] VITALS: Ht 157.5 cm; Wt 67.5 kg
[~2023-06-15 13:03] MED LIST changes: +AMLODIPINE BESY10 MG PO; +ASPIRIN 81 LOW81 MG PO; +DIOVAN320 MG PO; +VOLTAREN - GENE75 MG PO
[2023-06-15 13:49] LABS: BASO% 0.3 % (0-3); EOS% 1.5 % (0-8); HEMATOCRIT 47.2 % (37.0-47.0); IMMATURE GRANULOCYTES 0.1 % (0.0-5.0); MEAN CELL VOLUME 92.5 fL CALC (80.0-100.0); MEAN CORPUSCULAR HGB 29.4 pG CALC (26.0-32.0); MEAN CORPUSCULAR HGB CONC 31.8 g/dL CAL (32.0-36.0); MONO% 6.7 % (2-13); NEUT# 5.56 thou/uL (2.00-7.15); NEUT% 59.4 % (42-76); RED BLOOD COUNT 5.1 mill/uL (4.20-5.60)
[2023-06-15 14:12] LABS: INTERNATIONAL NORMALIZED RATIO 1.1 RATIO (0.7-1.3); PROTHROMBIN TIME 10.8 SECONDS (9.0-12.5)
[2023-06-15 14:17] LABS: ALBUMIN 4.3 g/dL (3.2-5.0); ALKALINE PHOSPHATASE 110 u/l (38-126); ANION GAP 14 (6-22 (CALC)); BILIRUBIN, TOTAL 0.4 mg/dL (0.02-1.3); BUN 15 mg/dL (8-23); BUN/CREATININE RATIO 18 (12-20 (CALC)); CARBON DIOXIDE 21 mmol/l (22-30); CHLORIDE 111 mmol/l (95-108); CREATININE 0.8 mg/dL (0.5-1.0); GFR FOR AFR.AMER. > 60 ML/MIN (>=60 (CALC)); GFR OTHER RACES > 60 ML/MIN (>=60 (CALC)); POTASSIUM 4.1 mmol/l (3.5-5.1); SGOT/AST 28 u/l (9-36); SODIUM 142 mmol/l (137-146); TOTAL PROTEIN 7.3 g/dL (6.3-8.2)
[2023-06-15 14:21] LABS: CALCULATED LDLCHOLESTEROL 115 mg/dL (62-129 (CALC)); CHOLESTEROL HDL RATIO 3.2 (<4.4 (CALC)); HDL CHOLESTEROL 72 mg/dL (39.0-59.0); TOTAL CHOLESTEROL 232 mg/dl (0-199); TOTAL TRIGLYCERIDES 224 mg/dl (0-149); VLDL CHOLESTROL 45 mg/dl (0-48 (CALC))
[2023-06-15 14:55] LABS: URINE BILIRUBIN - DIPSTICK Negative (NEGATIVE); URINE BLOOD DIPSTICK Negative (NEGATIVE); URINE COLOR Yellow; URINE GLUCOSE - DIPSTICK Negative (NEGATIVE); URINE KETONE Negative (NEGATIVE); URINE NITRITE - DIPSTICK Positive (Negative); URINE PH 5.5 (4.5-8.0); URINE PROTEIN - DIPSTICK Negative (NEG-TRACE); URINE UROBILINOGEN - DIPSTICK 0.2 E.U./dL (0.2)
[2023-06-15 14:56] LABS: URINE LEUK ESTERASE Moderate (NEGATIVE)
[2023-06-15 15:02] LABS: URINE BACTERIA FEW hpf; URINE SQUAMOUS EPITHELIAL CELL FEW EPI/hpf (0-FEW)
[2023-06-16] VITALS (23 sets, daily range): BP systolic 112–156; BP diastolic 57–99
[2023-06-16 05:03] LABS: IMMATURE GRANULOCYTES 0.1 % (0.0-5.0); LYMPH% 11.6 % (15-41); MEAN CELL VOLUME 91.4 fL CALC (80.0-100.0); MEAN CORPUSCULAR HGB 30.4 pG CALC (26.0-32.0); MEAN CORPUSCULAR HGB CONC 33.2 g/dL CAL (32.0-36.0); MONO% 0.4 % (2-13); NEUT# 6.23 thou/uL (2.00-7.15); NEUT% 87.9 % (42-76); RED BLOOD COUNT 4.21 mill/uL (4.20-5.60); RED CELL DISTRI WIDTH 13.9 % (11.5-15.5)
[2023-06-16 05:11] LABS: HEMATOCRIT 38.5 % (37.0-47.0); HEMOGLOBIN 12.8 g/dl (12.0-16.0)
[2023-06-16 05:29] LABS: ALKALINE PHOSPHATASE 80 u/l (38-126); ANION GAP 9 (6-22 (CALC)); BILIRUBIN, TOTAL 0.3 mg/dL (0.02-1.3); BUN 17 mg/dL (8-23); BUN/CREATININE RATIO 20 (12-20 (CALC)); CARBON DIOXIDE 21 mmol/l (22-30); CHLORIDE 113 mmol/l (95-108); CREATININE 0.8 mg/dL (0.5-1.0); GFR FOR AFR.AMER. > 60 ML/MIN (>=60 (CALC)); GFR OTHER RACES > 60 ML/MIN (>=60 (CALC)); MAGNESIUM 1.9 mg/dL (1.6-2.3); POTASSIUM 4.3 mmol/l (3.5-5.1); SGOT/AST 26 u/l (9-36); SODIUM 140 mmol/l (137-146)
[2023-06-16 05:32] LABS: ALBUMIN 3.3 g/dL (3.2-5.0); TOTAL PROTEIN 5.8 g/dL (6.3-8.2)
[2023-06-17] VITALS (8 sets, daily range): BP systolic 108–147; BP diastolic 47–76
[2023-06-17 07:32] LABS: BASO% 0.3 % (0-3); EOS% 0.7 % (0-8); HEMATOCRIT 38.9 % (37.0-47.0); HEMOGLOBIN 12.4 g/dl (12.0-16.0); IMMATURE GRANULOCYTES 0.1 % (0.0-5.0); LYMPH% 28.6 % (15-41); MEAN CELL VOLUME 92.4 fL CALC (80.0-100.0); MEAN CORPUSCULAR HGB 29.5 pG CALC (26.0-32.0); MEAN CORPUSCULAR HGB CONC 31.9 g/dL CAL (32.0-36.0); NEUT# 4.83 thou/uL (2.00-7.15); NEUT% 64.3 % (42-76); RED BLOOD COUNT 4.21 mill/uL (4.20-5.60); RED CELL DISTRI WIDTH 14.4 % (11.5-15.5)
[2023-06-17 07:43] LABS: ALBUMIN 3.1 g/dL (3.2-5.0); ALKALINE PHOSPHATASE 78 u/l (38-126); ANION GAP 8 (6-22 (CALC)); BILIRUBIN, TOTAL 0.3 mg/dL (0.02-1.3); BUN 22 mg/dL (8-23); BUN/CREATININE RATIO 26 (12-20 (CALC)); CARBON DIOXIDE 25 mmol/l (22-30); CHLORIDE 113 mmol/l (95-108); CREATININE 0.8 mg/dL (0.5-1.0); GFR FOR AFR.AMER. > 60 ML/MIN (>=60 (CALC)); GFR OTHER RACES > 60 ML/MIN (>=60 (CALC)); MAGNESIUM 1.9 mg/dL (1.6-2.3); POTASSIUM 3.8 mmol/l (3.5-5.1); SGOT/AST 21 u/l (9-36); SODIUM 142 mmol/l (137-146); TOTAL PROTEIN 5.5 g/dL (6.3-8.2)
[2023-06-17] MEDS ORDERED: MECLIZINE25 MG PO (07:48)
[2023-06-17] MEDS ORDERED: ATORVASTATIN CA40 MG PO (07:49)
[2023-06-17] MEDS ORDERED: OMNICEF300 M1 PO (07:50)
[2023-06-17] MEDS ORDERED: ADLT ASA LOW81 MG PO (07:52)
[2023-06-17] MEDS ORDERED: CIPROFLOXACN500 MG PO (09:06)
== END 2023-06-17 09:53 | disposition home or self-care (01) ==
LOC: ED 13:03 → ED-I 15:55 → ED 16:49 → ICU 16:50
PROVIDERS: Nurse Practitioner; Student in an Organized Health Care Education/Training Program; ADMIT Student in an Organized Health Care Education/Training Program; ATTEND Student in an Organized Health Care Education/Training Program
DX: R42 Dizziness and giddiness (principal); N30.00 Acute cystitis without hematuria; B96.20 Unspecified Escherichia coli [E. coli] as the cause of diseases classified elsewhere; I10 Essential (primary) hypertension; I25.10 Atherosclerotic heart disease of native coronary artery without angina pectoris; J44.9 Chronic obstructive pulmonary disease, unspecified; R53.1 Weakness; E03.9 Hypothyroidism, unspecified; Z86.711 Personal history of pulmonary embolism; Z85.528 Personal history of other malignant neoplasm of kidney
CPT/HCPCS: J1650; Q9967